=== PATIENT | male | born 1950 | race Caucasian/White ===

== ENCOUNTER → 2022-07-11 15:59 | Outpatient (BNVA) | payer MEDICARE, SELFPAY | PROVIDERS: PCP Internal Medicine; Visit Provider Psychiatry & Neurology Psychiatry | DX: F33.42 Major depressive disorder, recurrent, in full remission (principal); F41.0 Panic disorder [episodic paroxysmal anxiety]; I10 Essential (primary) hypertension; I48.91 Unspecified atrial fibrillation; M25.561 Pain in right knee; M25.562 Pain in left knee; G89.28 Other chronic postprocedural pain; Z96.653 Presence of artificial knee joint, bilateral | CPT/HCPCS: 90833; 99212 ==

== ENCOUNTER → 2022-08-21 16:10 | Outpatient (BNVA) | payer MEDICARE, SELFPAY | PROVIDERS: PCP Internal Medicine; Visit Provider Psychiatry & Neurology Psychiatry | DX: F33.42 Major depressive disorder, recurrent, in full remission (principal); F41.0 Panic disorder [episodic paroxysmal anxiety]; I10 Essential (primary) hypertension; G89.28 Other chronic postprocedural pain; M25.562 Pain in left knee; M25.561 Pain in right knee; Z96.653 Presence of artificial knee joint, bilateral | CPT/HCPCS: 90833; 99212 ==

== ENCOUNTER 2023-01-14 15:07 | Outpatient (AMB) | payer MEDICARE, SELFPAY ==
--- NOTE | 2023-01-14 15:13 | A.OFFPSYCH_ITS ---
Intake Intake Visit Reasons: Depression Allergies No Known Allergies Allergy (Verified 07/11/22 16:17) Medication List - Last Reconciled 01/14/23 by Jet Adame MD allopurinol 300 mg PO DAILY apixaban (Eliquis) 5 mg PO BID atorvastatin 40 mg PO DAILY bupropion HCl 100 mg PO BID clonazepam (Klonopin) 0.5 mg PO BID PRN metoprolol succinate ER 25 mg PO DAILY mirtazapine 7.5 mg PO BEDTIME venlafaxine ER 37.5 mg PO BEDTIME 30 days HPI- Psychiatric Chief Complaint: Depression HPI Narrative: pt patient continues to do well some periods of anxiety particularly in the morning continues to have difficulty with erectile dysfunction has been on effexor wellbutrin trazadone at hs Past Psychiatric History: The patient has a past history of significant recurrent depression that impacted his life for a number of years with associated panic attacks and difficulty functioning he was treated with Effexor Wellbutrin Rexulti clonazepam for panic attacks he also had a great deal of difficulty a year ago or so when he has suffered from COVID and he to be hospitalized and ended up in a rehab setting for a period of time Assessment and Plan Assessment & Plan (1) Major depression, recurrent, full remission: Status: Acute Code(s): F33.42 - Major depressive disorder, recurrent, in full remission (2) Panic disorder: Status: Acute Code(s): F41.0 - Panic disorder [episodic paroxysmal anxiety] (3) Hypertension: Status: Acute Code(s): I10 - Essential (primary) hypertension Plan Mood generally good her the reviewed with some periods of anxiety he is a committed relationship mirtazapine have sexual side then effexor 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 Medications: New mirtazapine 7.5 mg PO BEDTIME 30 tabs 2RF Discontinued trazodone Discontinued Reason: Doctor's Order 50 mg PO BEDTIME PRN 30 tabs 3RF insomnia Counseling and coordination of Care Details-Self Mgmt counseling: a Issues related regarding getting older some degree of sexual dysfx and relationship to hypertension medication antidepressant medication and aging Medication management counseling: Effectiveness and Side effects Diagnosis and Prognosis Counseling: Adequacy of current interventions Details: I spent [35] minutes reviewing the record, seeing the patient and documenting in the medical record. Counseling provided to the patient/caregiver as outlined below. Addressed patient/caregiver concerns regarding current medication regime including effective adherence. Addressed patient/caregiver concerns regarding diagnosis and prognosis including accuracy of diagnosis, prognosis over time, impact of diagnosis. Addressed patient/caregiver concerns regarding impact of recent stressors. 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 Had disruptive divorce many years ago that was quite difficult for him. 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
== END 2023-01-14 16:23 | disposition home or self-care (01) ==
LOC: HO.HOP 15:07
PROVIDERS: PCP Internal Medicine; Visit Provider Psychiatry & Neurology Psychiatry
DX: F33.42 Major depressive disorder, recurrent, in full remission (principal); F41.0 Panic disorder [episodic paroxysmal anxiety]; I10 Essential (primary) hypertension
CPT/HCPCS: 99214

== ENCOUNTER → 2023-01-14 15:07 | Outpatient (BNVA) | payer MEDICARE, SELFPAY | PROVIDERS: PCP Internal Medicine; Visit Provider Psychiatry & Neurology Psychiatry | DX: F33.42 Major depressive disorder, recurrent, in full remission (principal); F41.0 Panic disorder [episodic paroxysmal anxiety]; N52.2 Drug-induced erectile dysfunction; I10 Essential (primary) hypertension | CPT/HCPCS: 99212 ==

== ENCOUNTER 2023-04-30 16:12 | Outpatient (AMB) | payer MEDICARE, SELFPAY ==
--- NOTE | 2024-03-27 10:50 | MHC.OFFVISPS ---
Intake Intake Visit Reasons: depression Allergies No Known Allergies Allergy (Verified 07/11/22 16:17) HPI- Psychiatric Chief Complaint: depression HPI Narrative: Patient seen psychiatric follow-up. PHQ-9 in [facility] show significant stability and improvement. Patient has been feeling better regarding his work no new significant medical concerns. Patient able to enjoy things no significant panic attacks combination of mirtazapine and Wellbutrin clonazepam for breakthrough panic Past Psychiatric History: The patient has a past history of significant recurrent depression that impacted his life for a number of years with associated panic attacks and difficulty functioning he was treated with Effexor Wellbutrin Rexulti clonazepam for panic attacks he also had a great deal of difficulty a year ago or so when he has suffered from COVID and he to be hospitalized and ended up in a rehab setting for a period of time Mental Status Exam Mental Status Exam Narrative: Mental Status Exam Narrative: Appearance: Casually dressed Behavior: Cooperative appropriate psychomotor: Within normal limits Speech: Normal volume and prosody Thought proccess logical and goal-directed Thought content: Mood: Described as good Affect: Appropriate to mood full affect SI: No HI:denies VH/AH:none Delusions: None Insight/judgment: Memory/cog: Intact Assessment and Plan Assessment & Plan (1) Major depression, recurrent, full remission: Status: Acute Code(s): F33.42 - Major depressive disorder, recurrent, in full remission (2) Chronic knee pain after total replacement of both knee joints: Status: Acute Code(s): M25.561 - Pain in right knee; M25.562 - Pain in left knee; G89.28 - Other chronic postprocedural pain; Z96.653 - Presence of artificial knee joint, bilateral (3) Hypertension: Status: Acute Code(s): I10 - Essential (primary) hypertension (4) Panic disorder: Status: Acute Code(s): F41.0 - Panic disorder [episodic paroxysmal anxiety] Plan Patient has been tapering off Effexor to see if this would have less effect on sexual functioning mirtazapine and Wellbutrin continuing combination for treatment of depression and panic disorder. Patient has been feeling better in a relationship feeling more optimistic and connected. No current depressive symptoms Counseling and coordination of Care Details-Self Mgmt counseling: Relational issues managing anxiety symptoms sexual functioning Medication management counseling: Effectiveness and Side effects Diagnosis and Prognosis Counseling: Adequacy of current interventions Details: I spent [25] minutes reviewing the record, seeing the patient and documenting in the medical record. Counseling provided to the patient/caregiver as outlined below. Addressed patient/caregiver concerns regarding current medication regime including effective adherence. Addressed patient/caregiver concerns regarding diagnosis and prognosis including accuracy of diagnosis, prognosis over time, impact of diagnosis. Addressed patient/caregiver concerns regarding impact of recent stressors. 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 Had disruptive divorce many years ago that was quite difficult for him. 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
== END 2023-04-30 16:39 | disposition home or self-care (01) ==
LOC: HO.HOP 16:12
PROVIDERS: PCP Internal Medicine; Visit Provider Psychiatry & Neurology Psychiatry
DX: F33.42 Major depressive disorder, recurrent, in full remission (principal); M25.561 Pain in right knee; M25.562 Pain in left knee; G89.28 Other chronic postprocedural pain; Z96.653 Presence of artificial knee joint, bilateral; I10 Essential (primary) hypertension; F41.0 Panic disorder [episodic paroxysmal anxiety]
CPT/HCPCS: 99499

== ENCOUNTER → 2023-04-30 16:12 | Outpatient (BNVA) | payer MEDICARE, SELFPAY | PROVIDERS: PCP Internal Medicine; Visit Provider Psychiatry & Neurology Psychiatry ==

== ENCOUNTER 2023-09-09 14:33 | Outpatient (AMB) | payer MEDICARE, SELFPAY ==
--- NOTE | 2023-09-09 14:28 | A.OFFPSYCH_ITS ---
Intake Intake Visit Reasons: Depression Allergies No Known Allergies Allergy (Verified 07/11/22 16:17) HPI- Psychiatric Chief Complaint: Depression HPI Narrative: Patient seen psychiatric follow-up patient is mood generally stable. Considering senior living. Things continue to go quite well with his girlfriend they are considering moving in together. Patient does need some upcoming orthopedic surgery Has tapered down off on Effexor remains on low-dose Klonopin mirtazapine at bedtime. Rare partial panic Past Psychiatric History: The patient has a past history of significant recurrent depression that impacted his life for a number of years with associated panic attacks and difficulty functioning he was treated with Effexor Wellbutrin Rexulti clonazepam for panic attacks he also had a great deal of difficulty a year ago or so when he has suffered from COVID and he to be hospitalized and ended up in a rehab setting for a period of time Mental Status Exam Mental Status Exam Narrative: Mental Status Exam Narrative: Appearance: Casually dressed Behavior: Cooperative appropriate psychomotor: Within normal limits Speech: Normal volume and prosody Thought proccess logical and goal-directed Thought content: Future oriented feeling good about general life situation some anxiety about whether to move in with gf Mood: Euthymic Affect: Appropriate to mood full affect SI:denies HI:denies VH/AH:none Delusions: None Insight/judgment: Good insight and judgment Memory/cog: Intact Assessment and Plan Assessment & Plan (1) Panic disorder: Status: Acute Code(s): F41.0 - Panic disorder [episodic paroxysmal anxiety] (2) Major depression, recurrent, full remission: Status: Acute Code(s): F33.42 - Major depressive disorder, recurrent, in full remission (3) Chronic knee pain after total replacement of both knee joints: Status: Acute Code(s): M25.561 - Pain in right knee; M25.562 - Pain in left knee; G89.28 - Other chroni c postprocedural pain; Z96.653 - Presence of artificial knee joint, bilateral (4) Hypertension: Status: Acute Code(s): I10 - Essential (primary) hypertension Plan pt generally doing well off effexor still has erectile dyfx cont on wellbutrin mirtazapine change klonapin to lorazepam shorter acting safer over time reviewed potential risks benefits Medications: New lorazepam 0.5 mg PO BID PRN 45 tabs 2RF anxiety Refilled bupropion HCl 100 mg PO BID 180 tabs 0RF Discontinued venlafaxine ER Discontinued Reason: Patient no longer taking 37.5 mg PO BEDTIME 30 days 30 caps 3RF clonazepam Discontinued Reason: Doctor's Order 0.5 mg (1/2 x 1 mg) PO BID 30 days PRN 20 tabs 1RF anxiety Counseling and coordination of Care Details-Self Mgmt counseling: reviewed 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 Counseling provided to the patient/caregiver as outlined below. Addressed patient/caregiver concerns regarding current medication regime including effective adherence. Addressed patient/caregiver concerns regarding diagnosis and prognosis including accuracy of diagnosis, prognosis over time, impact of diagnosis. Addressed patient/caregiver concerns regarding impact of recent stressors. 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 Had disruptive divorce many years ago that was quite difficult for him. 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
== END 2023-09-09 14:47 | disposition home or self-care (01) ==
LOC: HO.HOP 14:34
PROVIDERS: PCP Internal Medicine; Visit Provider Psychiatry & Neurology Psychiatry
DX: F41.0 Panic disorder [episodic paroxysmal anxiety] (principal); F33.42 Major depressive disorder, recurrent, in full remission; M25.561 Pain in right knee; M25.562 Pain in left knee; G89.28 Other chronic postprocedural pain; Z96.653 Presence of artificial knee joint, bilateral; I10 Essential (primary) hypertension
CPT/HCPCS: 90833; 99213

== ENCOUNTER → 2023-09-09 14:33 | Outpatient (BNVA) | payer MEDICARE, SELFPAY | PROVIDERS: PCP Internal Medicine; Visit Provider Psychiatry & Neurology Psychiatry | DX: F41.0 Panic disorder [episodic paroxysmal anxiety] (principal); F33.42 Major depressive disorder, recurrent, in full remission; I10 Essential (primary) hypertension; M25.561 Pain in right knee; M25.562 Pain in left knee; G89.29 Other chronic pain; Z96.653 Presence of artificial knee joint, bilateral | CPT/HCPCS: 99212 ==

== ENCOUNTER 2024-02-19 13:53 | Outpatient (AMB) | payer MEDICARE, SELFPAY ==
--- NOTE | 2024-02-19 14:40 | A.OFFPSYCH_ITS ---
Intake Intake Visit Reasons: depression Allergies No Known Allergies Allergy (Verified 07/11/22 16:17) HPI- Psychiatric Chief Complaint: depression HPI Narrative: The patient has been increasingly depressed intermittently hopeless helpless despondent. Has been off Effexor which was tapered off secondary to erectile dysfunction patient has had a lot more anxiety and dysphoria is Effexor discontinued. Feels overwhelmed that he is under a dark cloud have things keep happening to him. 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 has been thinking of fdc he does feel supported by his girlfriend has been on Seroquel in the past continues on Wellbutrin Past Psychiatric History: The patient has a past history of significant recurrent depression that impacted his life for a number of years with associated panic attacks and difficulty functioning he was treated with Effexor Wellbutrin Rexulti clonazepam for panic attacks he also had a great deal of difficulty a year ago or so when he has suffered from COVID and he to be hospitalized and ended up in a rehab setting for a period of time Mental Status Exam Mental Status Exam Narrative: Mental Status Exam Narrative: Appearance: Casually dressed Behavior: Cooperative appropriate psychomotor: Within normal limits Speech: Normal volume and prosody Thought proccess logical and goal-directed at times perseverative ruminating Thought content: Feeling quite negative overwhelmed catastrophic thinking Mood: depressed Affect: Constricted SI: No active plan at times has thoughts he might be better off HI:denies VH/AH:none Delusions: None Insight/judgment: Some lack of insight into how depression may be affecting his functioning Memory/cog: Intact Assessment and Plan Assessment & Plan (1) Major psychotic depression, recurrent: Status: Acute Code(s): F33.3 - Major depressive disorder, recurrent, severe with psychotic symptoms Plan Increase mirtazapine to 15 mg education regarding impact of depressive symptoms on his functioning cognition follow-up 4 weeks patient given number to call if feeling unsafe considers Seroquel Abilifjean claude Rexulti for augmentation if needed could restart Effexor which had been helpful previously had started on mirtazapine with less impact on erectile functioning patient's cognition clear but negativistic Medications: Changed From mirtazapine 7.5 mg PO BEDTIME 30 tabs 2RF To mirtazapine 15 mg PO BEDTIME 30 tabs 1RF Counseling and coordination of Care Details-Self Mgmt counseling: Impact of depression on cognitive functioning and attitude urged to try and maintain perspective Medication management counseling: Effectiveness, Side effects and Dosing range Diagnosis and Prognosis Counseling: Adequacy of current interventions Details: I spent [40] minutes reviewing the record, seeing the patient and documenting in the medical record. Counseling provided to the patient/caregiver as outlined below. Addressed patient/caregiver concerns regarding current medication regime including effective adherence. Addressed patient/caregiver concerns regarding diagnosis and prognosis including accuracy of diagnosis, prognosis over time, impact of diagnosis. Addressed patient/caregiver concerns regarding impact of recent stressors. 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 Had disruptive divorce many years ago that was quite difficult for him. 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
== END 2024-02-19 15:00 | disposition home or self-care (01) ==
LOC: HO.HOP 13:53
PROVIDERS: PCP Internal Medicine; Visit Provider Psychiatry & Neurology Psychiatry
DX: F33.3 Major depressive disorder, recurrent, severe with psychotic symptoms (principal)
CPT/HCPCS: 90833; 99213

== ENCOUNTER → 2024-02-19 13:53 | Outpatient (BNVA) | payer MEDICARE, SELFPAY | PROVIDERS: PCP Internal Medicine; Visit Provider Psychiatry & Neurology Psychiatry | DX: F33.3 Major depressive disorder, recurrent, severe with psychotic symptoms (principal); Z71.89 Other specified counseling | CPT/HCPCS: 99212 ==

== ENCOUNTER 2024-03-18 14:19 | Outpatient (AMB) | payer MEDICARE, SELFPAY ==
--- NOTE | 2024-03-18 14:38 | A.OFFPSYCH_ITS ---
Intake Intake Visit Reasons: depression Allergies No Known Allergies Allergy (Verified 07/11/22 16:17) HPI- Psychiatric Chief Complaint: depression HPI Narrative: Pt seen in f/u mood has been depressed recent breakup. Again feeling quite negative a sense cognitive distortions that he thinks everything bad happens to him. Frustrated anxious no active SI but thoughts at times he would be better off . He had been planning to move in with his female life partner but she had recently set road block and appeared to have change her mind about living together and this was quite intense and catastrophic for the patient. He is trying to see where this might go and is provoking a lot of stress. Has been on mirtazapine and Wellbutrin Past Psychiatric History: The patient has a past history of significant recurrent depression that impacted his life for a number of years with associated panic attacks and difficulty functioning he was treated with Effexor Wellbutrin Rexulti clonazepam for panic attacks he also had a great deal of difficulty a year ago or so when he has suffered from COVID and he to be hospitalized and ended up in a rehab setting for a period of time Mental Status Exam Mental Status Exam Narrative: Mental Status Exam Narrative: Appearance: Casually dressed Behavior: Cooperative appropriate psychomotor: Within normal limits Speech: Normal volume and prosody Thought proccess logical and goal-directed at times perseverative ruminating Thought content: Feeling quite negative overwhelmed catastrophic thinking Mood: depressed Affect: Constricted SI: No active plan at times has thoughts he might be better off HI:denies VH/AH:none Delusions: None Insight/judgment: Some lack of insight into how depression may be affecting his functioning Memory/cog: Intact Assessment and Plan Assessment & Plan (1) Major depression, recurrent: Status: Acute Code(s): F33.9 - Major depressive disorder, recurrent, unspecified (2) Panic disorder: Status: Acute Code(s): F41.0 - Panic disorder [episodic paroxysmal anxiety] Plan Encourage counseling different perspective challenging negative assumptions patient will be talking to his significant other mirtazapine increased to 22.5 mg. Reviewed safety options if active SI Medications: Changed From mirtazapine 15 mg PO BEDTIME 30 tabs 1RF To mirtazapine 22.5 mg (1.5 x 15 mg) PO BEDTIME 45 tabs 2RF 30 days Counseling and coordination of Care Details-Self Mgmt counseling: Issues related to negative thinking and recent interpersonal difficulties with partner Diagnosis and Prognosis Counseling: Impact of diagnosis on life functions and Adequacy of current interventions Details: I spent [40] minutes reviewing the record, seeing the patient and documenting in the medical record. Counseling provided to the patient/caregiver as outlined below. Addressed patient/caregiver concerns regarding current medication regime including effective adherence. Addressed patient/caregiver concerns regarding diagnosis and prognosis including accuracy of diagnosis, prognosis over time, impact of diagnosis. Addressed patient/caregiver concerns regarding impact of recent stressors. 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 Had disruptive divorce many years ago that was quite difficult for him. 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
== END 2024-03-18 16:34 | disposition home or self-care (01) ==
LOC: HO.HOP 14:19
PROVIDERS: PCP Internal Medicine; Visit Provider Psychiatry & Neurology Psychiatry
DX: F33.9 Major depressive disorder, recurrent, unspecified (principal); F41.0 Panic disorder [episodic paroxysmal anxiety]
CPT/HCPCS: 90833; 99213

== ENCOUNTER → 2024-03-18 14:19 | Outpatient (BNVA) | payer MEDICARE, SELFPAY | PROVIDERS: PCP Internal Medicine; Visit Provider Psychiatry & Neurology Psychiatry | DX: F33.9 Major depressive disorder, recurrent, unspecified (principal); F41.0 Panic disorder [episodic paroxysmal anxiety]; Z71.89 Other specified counseling | CPT/HCPCS: 99212 ==

== ENCOUNTER 2024-06-16 14:49 | Outpatient (AMB) | payer MEDICARE, SELFPAY ==
--- NOTE | 2024-06-16 15:14 | MHC.OFFVISPS ---
Intake Intake Visit Reasons: depression Allergies No Known Allergies Allergy (Verified 07/11/22 16:17) Medication List - Last Reconciled 06/16/24 by Jet Adame MD allopurinol 300 mg PO DAILY apixaban (Eliquis) 5 mg PO BID atorvastatin 40 mg PO DAILY bupropion HCl SR 100 mg PO BID lorazepam 0.5 mg PO BID PRN metoprolol succinate ER 25 mg PO DAILY mirtazapine 15 mg PO BEDTIME 30 days HPI- Psychiatric Chief Complaint: depression HPI Narrative: Pt seen in f/u mood has been ok has been in ongoing rel his partner has cervical ca stage 4 . 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 Feels connected to his gf was going to move in Spends time with family. No new medical concerns. Anxiety manageable . Past Psychiatric History: The patient has a past history of significant recurrent depression that impacted his life for a number of years with associated panic attacks and difficulty functioning he was treated with Effexor Wellbutrin Rexulti clonazepam for panic attacks he also had a great deal of difficulty a year ago or so when he has suffered from COVID and he to be hospitalized and ended up in a rehab setting for a period of time Mental Status Exam Mental Status Exam Narrative: Mental Status Exam Narrative: Appearance: Casually dressed Behavior: Cooperative appropriate psychomotor: Within normal limits Speech: Normal volume and prosody Thought proccess logical and goal-directed Thought content: Future oriented focused on his partner and ca Mood: Euthymic Affect: Appropriate to mood full affect SI:denies HI:denies VH/AH:none Delusions: None Insight/judgment: Good insight and judgment Memory/cog: Intact Assessment and Plan Assessment & Plan (1) Major depression, recurrent, full remission: Status: Acute Code(s): F33.42 - Major depressive disorder, recurrent, in full remission (2) Panic disorder: Status: Acute Code(s): F41.0 - Panic disorder [episodic paroxysmal anxiety] Plan doing well generally feeling connected with his gf partner Medications: Changed From mirtazapine 15 mg PO BEDTIME 30 days 30 tabs 3RF To mirtazapine 15 mg PO BEDTIME 90 tabs 1RF 90 days Refilled bupropion HCl SR 100 mg PO BID 180 tabs 1RF Counseling and coordination of Care Pt. Self Management counseling: Cognitive restructuring Medication management counseling: Effectiveness, Side effects and Dosing range Diagnosis and Prognosis Counseling: Adequacy of current interventions Details: I spent [30] minutes reviewing the record, seeing the patient and documenting in the medical record. Counseling provided to the patient/caregiver as outlined below. Addressed patient/caregiver concerns regarding current medication regime including effective adherence. Addressed patient/caregiver concerns regarding diagnosis and prognosis including accuracy of diagnosis, prognosis over time, impact of diagnosis. Addressed patient/caregiver concerns regarding impact of recent stressors. 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 Had disruptive divorce many years ago that was quite difficult for him. 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
== END 2024-06-16 18:17 | disposition home or self-care (01) ==
LOC: HO.HOP 14:49
PROVIDERS: PCP Internal Medicine; Visit Provider Psychiatry & Neurology Psychiatry
DX: F33.42 Major depressive disorder, recurrent, in full remission (principal); F41.0 Panic disorder [episodic paroxysmal anxiety]
CPT/HCPCS: 99214

== ENCOUNTER → 2024-06-16 14:49 | Outpatient (BNVA) | payer MEDICARE, SELFPAY | PROVIDERS: PCP Internal Medicine; Visit Provider Psychiatry & Neurology Psychiatry | DX: F33.42 Major depressive disorder, recurrent, in full remission (principal); F41.0 Panic disorder [episodic paroxysmal anxiety]; Z71.89 Other specified counseling | CPT/HCPCS: 99212 ==

== ENCOUNTER 2024-10-12 14:39 | Outpatient (AMB) | payer MEDICARE, SELFPAY ==
--- NOTE | 2024-10-12 15:00 | MHC.OFFVISPS ---
Intake Intake Visit Reasons: depression Allergies No Known Allergies Allergy (Verified 07/11/22 16:17) HPI- Psychiatric Chief Complaint: depression HPI Narrative: Patient seen psychiatric follow-up. Patient's girlfriend has been going through radiation chemotherapy has not currently wanted the patient move in. He is not sure of his current status in the relationship. Patient intermittently has some increased anxiety but mostly managing. 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 Past Psychiatric History: The patient has a past history of significant recurrent depression that impacted his life for a number of years with associated panic attacks and difficulty functioning he was treated with Effexor Wellbutrin Rexulti clonazepam for panic attacks he also had a great deal of difficulty a year ago or so when he has suffered from COVID and he to be hospitalized and ended up in a rehab setting for a period of time Mental Status Exam Mental Status Exam Narrative: Mental Status Exam Narrative: Appearance: Casually dressed Behavior: Cooperative appropriate psychomotor: Within normal limits Speech: Normal volume and prosody Thought proccess logical and goal-directed Thought content: Future oriented focused on his partner and ca Mood: Okay ?some anxiety regarding future Affect: Appropriate to mood full affect SI:denies HI:denies VH/AH:none Delusions: None Insight/judgment: Good insight and judgment Memory/cog: Intact Assessment and Plan Assessment & Plan (1) Panic disorder: Status: Acute Code(s): F41.0 - Panic disorder [episodic paroxysmal anxiety] (2) Major depression, recurrent: Status: Acute Code(s): F33.9 - Major depressive disorder, recurrent, unspecified Plan Given increased anxiety will try and increase mirtazapine 22.5 mg see if that helps mood and anxiety patient denies self-harm 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 No acute change in medical status Medications: Changed From mirtazapine 15 mg PO BEDTIME 90 days 90 tabs 1RF To mirtazapine 22.5 mg (1.5 x 15 mg) PO BEDTIME 135 tabs 1RF 90 days Refilled bupropion HCl SR 100 mg PO BID 180 tabs 1RF lorazepam 0.5 mg PO BID PRN 45 tabs 2RF anxiety Counseling and coordination of Care Details: I spent [] minutes reviewing the record, seeing the patient and documenting in the medical record. Counseling provided to the patient/caregiver as outlined below. Addressed patient/caregiver concerns regarding current medication regime including effective adherence. Addressed patient/caregiver concerns regarding diagnosis and prognosis including accuracy of diagnosis, prognosis over time, impact of diagnosis. Addressed patient/caregiver concerns regarding impact of recent stressors. 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 Had disruptive divorce many years ago that was quite difficult for him. 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
--- OUTSIDE RECORDS SUMMARY | 2024-10-12 17:32 | XMS_ITS | Clinical Summary ---
Author Organization [facility] Address [address] [place] [address] Care Team Providers Care Teacher Of Family And Consumer Science Name Role Phone Geovanny Lew MD Primary Care Provider Allergies No known active allergies Medications Medication Sig Dispensed Refills Start Date End Date Status flecainide (TAMBOCOR) 100 MG tablet Take 100 mg by mouth. 0 Active ELIQUIS 5 MG TABS tablet 0 07/03/2019 Active clonazePAM (KlonoPIN) 1 MG tablet TK 1 T PO BID IF NEEDED 0 05/21/2019 Active buPROPion (WELLBUTRIN SR) 100 MG 12 hr tablet TK 1 T PO BID 0 05/18/2019 Active traZODone (DESYREL) 50 MG tablet 0 07/16/2019 Active venlafaxine (EFFEXOR-XR) 75 MG 24 hr capsule TK 1 C PO Q HS 0 06/14/2019 Active atorvastatin (LIPITOR) tablet 40 mg 0 07/13/2019 Active gemfibrozil (LOPID) 600 MG tablet Take 600 mg by mouth. 0 Active simvastatin (ZOCOR) tablet 10 mg Take 10 mg by mouth. 0 Active atenolol (TENORMIN) tablet 100 mg Take 100 mg by mouth. 0 Active atenolol (TENORMIN) tablet 25 mg Take 25 mg by mouth daily. 3 04/20/2019 Active vardenafil (LEVITRA) 20 MG tablet Take 20 mg by mouth daily as needed. 0 07/09/2019 Active allopurinol (ZYLOPRIM) 300 MG tablet 300 mg daily. 0 07/03/2019 Active azithromycin (ZITHROMAX) 250 MG tablet 0 07/16/2019 Active doxycycline (VIBRAMYCIN) 100 MG capsule Take 100 mg by mouth. 0 06/05/2017 Active Multiple Vitamins-Minerals (MULTIVITAMIN ADULT PO) Take by mouth daily. 0 Active vitamin E 100 UNIT capsule Take 100 Units by mouth daily. 0 Active vitamin C (ASCORBIC ACID) 500 MG tablet Take 500 mg by mouth daily. 0 Active Magnesium 500 MG CAPS Take by mouth daily. 0 Active Pyridoxine HCl (VITAMIN B-6) 100 MG tablet Take 100 mg by mouth daily. 0 Active Coenzyme Q10 (COQ10) 100 MG CAPS Take by mouth daily. 0 Active Social History Tobacco Use Types Packs/Day Years Used Date Smoking Tobacco: Former Smokeless Tobacco: Former Sex and Gender Information Value Date Recorded Sex Assigned at Not on file Gender Identity Not on file Sexual Orientation Not on file Job Start Date Occupation Industry Not on file Not on file Not on file Last Filed Vital Signs Vital Sign Reading Time Taken Comments Blood Pressure 138/78 07/17/2019 2:16 PM EST Pulse - - Temperature - - Respiratory Rate - - Oxygen Saturation - - Inhaled Oxygen Concentration - - Weight 102.1 kg (225 lb) 09/07/2019 4:08 PM EST Height 185.4 cm (6' 1 ) 09/07/2019 4:08 PM EST Body Mass Index 29.69 09/07/2019 4:08 PM EST Plan of Treatment Health Maintenance Due Date Last Done Comments Hepatitis C Screening 1950 COVID-19 Vaccine (#1) 03/31/1949 Depression Screening 1960 Preventative Health Evaluation 1966 DTap / Tdap / Td (1 - Tdap) 09/29/1967 Shingrix-Zoster Vaccine (1 of 2) 1998 Fall Risk Assessment 2013 Pneumococcal Vaccine (2 of 2 - PCV) 2013 05/17/2008 RSV Adult > 60+ Yrs or Pregn ant (1 - 1-dose 75+ series) 09/29/2023 Influenza Vaccine (#1) 2024 Hepatitis B Vaccines Aged Out No long er eligible based on patient's age to complete this topic RSV Ped < 20 months Aged Out No longe r eligible based on patient's age to complete this topic Care Teams Teacher Of Family And Consumer Science Relationship Specialty Start Date End Date Geovanny Lew MD [address] [address] PCP - General Internal Medicine 07/17/19
--- OUTSIDE RECORDS SUMMARY | 2024-10-12 17:32 | XMS_ITS ---
Author Organization [facility] Care Team Providers Care Slp Name Role Phone Cassie Villeda Unavailable Unavailable Lux Mcfarland Unavailable Unavailable Rebecca Troy Unavailable Unavailable Allergies and adverse reactions No Known Allergies Care Team Name Role Address Phone Organization Dates Lux Mcfarland PCP [address] [facility] [address] [place] [address], [id number], [facility] (Office): [facility] 04/13/2021 - 05/12/2021 Cassie Villeda Attending Physician [address] [place] [address], [facility], [facility] (Office): [facility] 04/13/2021 - 05/12/2021 Rebecca Troy Attending Physician [address] [place] [address], [id number], [facility] (Office): [facility] 04/13/2021 - 05/12/2021 Immunizations Immunization Status Vaccine Details Vaccine Code CodeSystem Date Notes Influenza completed Influenza, split virus, trivalent, injectable, contains preservative lotNumber: [id number] expiry: 12/20/2021 Mfg: AFLURIA qUADRIVALENT Given 0.5 ml Right Deltoid intramuscularly 141 CVX created date: 05/11/2021 administer ed date: 05/09/2021 Educated by Shelia Soto on 05/09/2021 Given here SARS-COV-2 (COVID-19) completed SARS-COV-2 (COVID-19) vaccine, mRNA, spike protein, LNP, preservative free, 30 mcg/0.3mL dose lotNumber: [id number] expiry: 08/07/2021 Mfg: [employer] Given 0.3 ml Right Deltoid intramuscularly Step 1 of Multi-step 208 CVX created date: 05/11/2021 administer ed date: 05/09/2021 Educated by Shelia Soto on 05/09/2021 Booster dose pfizer SARS-COV-2 (COVID-19) completed SARS-COV-2 (COVID-19) vaccine, mRNA, spike protein, LNP, preservative free, 30 mcg/0.3mL dose Mfg: [employer] Step 2 of Multi-step with next step required 208 CVX created date: 04/13/2021 administer ed date: 10/07/2020 SARS-COV-2 (COVID-19) completed SARS-COV-2 (COVID-19) vaccine, mRNA, spike protein, LNP, preservative free, 30 mcg/0.3mL dose Mfg: [employer] Step 1 of Multi-step with next step required 208 CVX created date: 04/13/2021 administer ed date: 09/16/2020 Mental Status Section Date Assessment Total Score Description 05/12/2021 CAM 0 No delirium ind icated 04/18/2021 BIMS 15 cognitively int act CAM 0 No delirium ind icated PHQ-9 09 mild depression Problems Problem # Description Date of onset Resolved Date Code CodeSystem Concern Status 1 ACUTE EMBOLISM AND THROMBOSIS OF DEEP VEINS OF LEFT UPPER EXTREMITY 04/13/[address] active 2 ACUTE RESPIRATORY FAILURE WITH HYPOXIA 04/13/[address] active 3 BENIGN PROSTATIC HYPERPLASIA WITHOUT LOWER URINARY TRACT SYMPTOMS 04/13/[address] active 4 CHRONIC ATRIAL FIBRILLATION, UNSPECIFIED 04/13/[address] active 5 CHRONIC GOUT DUE TO RENAL IMPAIRMENT, UNSPECIFIED SITE, WITHOUT TOPHUS (TOPHI) 04/13/[address] active 6 DIFFICULTY IN WALKING, NOT ELSEWHERE CLASSIFIED 04/13/[address] active 7 ESSENTIAL (PRIMARY) HYPERTENSION 04/13/[address] active 8 HYPERLIPIDEMIA, UNSPECIFIED 04/13/[address] active 9 MAJOR DEPRESSIVE DISORDER, RECURRENT, UNSPECIFIED 04/13/[address] active 10 PERSONAL HISTORY OF COVID-19 04/13/[address] active 11 PNEUMONIA DUE TO CORONAVIRUS DISEASE 2019 04/13/[id number] active 12 POST COVID-19 CONDITION, UNSPECIFIED 04/13/20 U09.9 ICD-10-CM active 13 PYOTHORAX WITHOUT FISTULA 04/13/[address] active 14 SHORTNESS OF BREATH 04/13/[address] active 15 WEAKNESS 04/13/[address] active Reason for Referral No Reasons for Referral Entered Social History Social History Observation Description Start Date End Date Code Code System Current Smoking Status Tobacco smoking consumption unknown 805767296 SNOMED CT Sex Assigned At Male 1950 06879-5 [facility] Vital Signs Code Code System Vitals Name Values and Units Timing Information 95541-4 [facility] Pain Level Value=0.0 05/12/2021 8310-5 [facility] Body Temperature Value=97.5 Units=?? F 05/12/2021 60084-7 [facility] Weight Tubcr=287.1 Units=Lbs 09/2020 18370-6 [facility] O2 % BldC Oximetry Value=96.0 Units= % 05/10/2021 9279-1 [facility] Respiratory Rate Value=20.0 Units=/m in 05/10/2021 8867-4 [facility] Heart rate Value=80.0 Units=/min 09/2020 8462-4 [facility] Blood Pressure-Diastolic Value=75 Un its=mmHg 05/10/2021 8480-6 [facility] Blood Pressure-Systolic Esjqg=141 Un its=mmHg 05/10/2021 8302-2 [facility] Height Value=73.0 Units=Inches 04/19/2021
--- OUTSIDE RECORDS SUMMARY | 2024-10-12 17:32 | XMS_ITS | Clinical Summary ---
Author Organization [facility] Address [address] [place] [address] Care Team Providers Care Sandfill Operator Name Role Phone Geovanny Lew MD Primary Care Provider [phone] Allergies No known active allergies Medications MULTIPLE VITAMIN PO Take 1 tablet by mouth 1 (one) time each day Active allopurinol (ZYLOPRIM) 300 MG tablet Take 300 mg by mouth 1 (one) time each day 07/03/2019 Active apixaban (ELIQUIS) 5 MG tablet Take 1 tablet by mouth 2 (two) times a day 07/03/2019 Active atorvastatin (LIPITOR) 40 MG tablet Take 1 tablet by mouth 1 (one) time each day 07/13/2019 Active traZODone (DESYREL) 50 MG tablet Take 1 tablet by mouth 1 (one) time each day 07/16/2019 Active buPROPion SR (WELLBUTRIN SR) 100 MG 12 hr tablet Take 1 tablet by mouth 1 (one) time each day 05/18/2019 Active clonazePAM (KlonoPIN) 1 MG tablet Take 1 mg by mouth 2 (two) times a day if needed for anxiety Active metoprolol succinate XL (TOPROL XL) 25 MG 24 hr tablet Take 25 mg by mouth 1 (one) time each day 08/18/2022 Active tamsulosin (FLOMAX) 0.4 MG 24 hr capsule TAKE 1 CAPSULE BY MOUTH EVERY DAY 90 capsule 1 07/12/2024 Active Active Problems Problem Noted Date Diagnosed Date Hyperlipidemia 09/02/2020 Paroxysmal atrial fibrillation 09/02/2020 Essential (primary) hypertension 09/02/2020 Stage 3a chronic kidney disease 09/02/2020 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 Hypertensive nephrosclerosis 09/02/2020 Benign prostatic hyperplasia with lower urinary tract symptom 09/02/2020 Serum creatinine above reference range Cardiac arrhythmia 09/01/2020 Spinal stenosis 09/01/2020 Gout 09/01/2020 Chronic diarrhea 08/04/2015 Depressive disorder 08/04/2015 Family History Medical History Relation Comments Hypertension Father Stroke Father Cancer Mother Relation Status Comments Father Mother Social History Tobacco Use Types Packs/Day Years Used Date Smoking Tobacco: Former Cigarettes Q uit: 1972 Smokeless Tobacco: Never Alcohol Use Standard Drinks/Week Comments Yes 0 (1 standard drink = 0.6 oz pur e alcohol) Sex and Gender Information Value Date Recorded Sex Assigned at Not on file Legal Sex Male 4:58 PM EST Gender Identity Not on file Sexual Orientation Not on file Last Filed Vital Signs Vital Sign Reading Time Taken Comments Blood Pressure 120/60 10/29/2022 3:43 PM EDT Pulse 73 10/29/2022 3:43 PM EDT Temperature - - Respiratory Rate - - Oxygen Saturation 95% 09/02/2020 2:10 PM EST Inhaled Oxygen Concentration - - Weight 99.8 kg (220 lb) 10/29/2022 3:43 PM EDT Height 185.4 cm (6' 1 ) 09/02/2020 2:10 PM EST Body Mass Index 29.03 09/02/2020 2:10 PM EST Plan of Treatment Health Maintenance Due Date Last Done Comments Pneumococcal Vaccine: 65+ Ye ars (2 of 2 - PCV) 05/17/2009 05/17/2008 Influenza Vaccine (Season Ended) 2025 Hepatitis B Vaccine Aged Out No longe r eligible based on patient's age to complete this topic Insurance AETNA MEDICARE AETNA MEDICARE Care Teams Sandfill Operator Relationship Specialty Start Date End Date Geovanny Lew MD [address] [place] [address] PCP - General 07/18/20
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
--- OUTSIDE RECORDS SUMMARY | 2024-10-12 17:32 | XMS_ITS | Encounter Summary ---
Author Organization [facility] Address [address] [place] [address] Care Team Providers Care Jelly Maker Name Role Phone Geovanny Lew MD Primary Care Provider Encounter Details Date Type Department Care Team ([facility] st Contact Info) Description 06/29/2024 Lab Requisition [facility] - Main Lab [address] [facility] [place] [phone] Geovanny Lew MD 299 [facility] [address] [place] [address] Unspecified osteoarthritis, unspecified site Social History Tobacco Use Types Packs/Day Years Used Date Smoking Tobacco: Former Smokeless Tobacco: Former Alcohol Use Standard Drinks/Week Comments Yes 0 (1 standard drink = 0.6 oz pur e alcohol) Sex and Gender Information Value Date Recorded Sex Assigned at Male 08/26/2024 5:53 PM EST Legal Sex Male 5:19 PM EST Gender Identity Male 08/26/2024 5:53 PM EST Sexual Orientation Straight 08/26/2024 5: 53 PM EST documented as of this encounter Plan of Treatment Not on file documented as of this encounter Procedures Procedure Name Priority Date/Time Associated Diagnosis Comments PROSTATE SPECIFIC ANTIGEN SCREEN Routine 06/29/2024 12:00 AM EST Unspecified osteoarthritis, unspecified site HEMOGLOBIN A1C Routine 06/29/2024 12:00 AM EST Unspecified osteoarthritis, unspecified site documented in this encounter Results * Prostate specific antigen screen (06/29/2024 12:00 AM EST) PSA 0.23 0.00 - 4.00 ng/mL LAB CHEMISTRY METHOD 06/29/2024 7:07 PM EST [facility] Blood Venous blood specimen / Unknown 06/29/2024 06/29/2024 6:03 PM EST Narrative [facility] - 06/29/2024 7:07 PM EST The Siemens Advia Centaur Chemiluminescent Immunoassay is used. Results obtained with different assay methods or kits cannot be used interchangeably. Results cannot be interpreted as absolute evidence of the presence or absence of malignant disease. us Geovanny Lew MD LAB BLOOD ORDERABLES Final Result Performing Organization Address City/[facility]/ZIP Co de Phone Number [facility] [address] [place] [address], [place] [phone] * Hemoglobin A1c (06/29/2024 12:00 AM EST) Hemoglobin A1C 5.2 <6.5 % LAB CHEMISTRY METHOD 06/29/2024 9:24 PM EST [facility] Mean Bld Glu Estim. 103 mg/dL LAB CHEMISTRY METHOD 06/29/2024 9:24 PM EST [facility] Blood Venous blood specimen / Unknown 06/29/2024 06/29/2024 6:03 PM EST us Geovanny Lew MD LAB BLOOD ORDERABLES Final Result [facility] [address] [place] [address], [place] [phone] documented in this encounter Visit Diagnoses Diagnosis Unspecified osteoarthritis, unspecified site documented in this encounter Additional Health Concerns Infection Onset Date Last Indicated Resolved Time Respiratory Rule-Out 08/20/2024 08/20/2024 025 9:07 PM EST COVID-19 Rule-Out 08/20/2024 08/20/2024 08/20/2024 9:07 PM EST RSV 08/20/2024 08/20/2024 09/13/2024 7:06 PM EDT Gastrointestinal Rule-Out 08/26/2024 08/26/2024 8:23 PM EST C. Diff Rule-Out Infection 08/26/2024 08/26/2024 0 08/26/2024 7:44 PM EST Norovirus 08/26/2024 08/26/2024 documented as of this encounter Care Teams Jelly Maker Relationship Specialty Start Date End Date Geovanny Lew MD [address] [place] [address] PCP - General Internal Medicine 06/06/20 documented as of this encounter
--- OUTSIDE RECORDS SUMMARY | 2024-10-12 17:32 | XMS_ITS | Clinical Summary ---
Author Organization [email or web address] Address [address] [place] [address] Phone Care Team Providers Care Welfare Manager Name Role Phone Geovanny Lew MD Primary Care Provider [phone] Allergies No known active allergies Medications ALLOPURINOL ORAL Take 300 mg by mouth daily. Active atorvastatin (LIPITOR) 40 mg tablet Take 40 mg by mouth daily. Active buPROPion (WELLBUTRIN) 100 mg tablet Take 1 tablet (100 mg total) by mouth 2 (two) times a day. Active metoprolol succinate (TOPROL-XL) 25 mg 24 hr tablet Take 1 tablet (25 mg total) by mouth 1 (one) time each day. 03/02/2022 Active apixaban (Eliquis) 5 mg tablet TAKE 1 TABLET BY MOUTH TWICE DAILY 180 tablet 1 08/10/2024 Active LORazepam (ATIVAN) 0.5 mg tablet Take 1 tablet (0.5 mg total) by mouth 2 (two) times a day if needed. Active mirtazapine (REMERON) 15 mg tablet Take 1 tablet (15 mg total) by mouth at bedtime. at bedtime. 06/16/2024 Active tamsulosin (FLOMAX) 0.4 mg 24 hr capsule Take 1 capsule (0.4 mg total) by mouth 1 (one) time each day. 12/24/2023 Active ondansetron (ZOFRAN) 4 mg tabletIndication s:Nausea and vomiting, unspecified vomiting type Take 1 tablet (4 mg total) by mouth every 8 (eight) hours if needed for nausea or vomiting. 20 tablet 3 09/17/2024 10/18/19 25 Active Active Problems Problem Noted Date Diagnosed Date Weakness 08/26/2024 Dehydration 08/20/2024 Aortic aneurysm without rupture 01/24/2021 Overview (06/08/2024): Last Assessment & Plan: Last echocardiogram showing stable ascending aorta measuring 4.2 cm in sinuses of Valsalva measuring 4.6 cm and dilatation. We will update an echocardiogram in 1 year. Atrial fibrillation 01/24/2021 Overview (06/08/2024): Last Assessment & Plan: Patient has history of paroxysmal atrial fibrillation. His [id number] score is 2 representing a 2.2% risk for thromboembolism. He continues on Eliquis 5 mg twice daily for anticoagulation. Benign essential hypertension 01/24/2021 Overview (06/08/2024): Last Assessment & Plan: Blood pressure is under excellent control with a reading today of 138/70. He continues on metoprolol. First degree atrioventricular block 01/24/2021 Overview (06/08/2024): Last Assessment & Plan: Patient's EKG is stable and unchanged showing sinus rhythm with first-degree AV block with a heart rate of 63 bpm. Pure hypercholesterolemia 01/24/2021 Overview (06/08/2024): Last Assessment & Plan: Lipids are monitored by his primary care provider. He states that he recently had labs done with his PCP and we will obtain them for review. He continues on atorvastatin 40 mg once a day. Encounters Date Type Department Care Team Description 10/09/2024 Telephone Gastroenterology - [address] [place] [address] Ernestine Mckeon PA 10/02/2024 9:36 AM EDT - 10/02/2024 11:59 PM EDT Hospital Encounter [facility] MRI [address] [place] [address] Nausea and vomiting, unspecified vomiting type; Abnormal CT scan Discharge Disposition: Home or Self Care 09/29/2024 Telephone Gastroenterology - [address] [facility] [address] [place] [address] Tran Gamble MA 09/23/2024 3:30 PM EDT Ancillary Procedure [facility] [address] [place] [phone] Paroxysmal atrial fibrillation (CMS/HCC); Aortic aneurysm without rupture, unspecified portion of aorta (CMS/HCC); Essential hypertension, benign 09/21/2024 Telephone Gastroenterology - [address] [facility] [address] [address] [place] [address] Tran Gamble MA 09/17/2024 3:10 PM EDT Lab Draw Station - [address] [facility] [address] [facility] [address] [address] Nausea and vomiting, unspecified vomiting type; Abnormal CT scan 09/17/2024 2:40 PM EDT Office Visit Gastroenterology - [address] [facility] [address] [place] [phone] Ernestine Mckeon PA Nausea and vomiting, unspecified vomiting type (Primary Dx); Abnormal CT scan 08/26/2024 5:42 PM EST - 08/27/2024 12:49 PM EST [facility] [address] [place] [address] Lamonte Nettles MD Kela, Kashyap Devendrabhai, MD Dehydration (Primary Dx); Diarrhea of infectious origin Discharge Disposition: Home or Self Care 08/20/2024 7:46 PM EST - 08/21/2024 2:00 PM EST [facility] Emergency [address] [place] [phone] Jasmina Jim DO Ishtiaq, Rizwan, MD Santoyo-Pacheco, Omar D, MD Dehydration (Primary Dx); Orthostatic dizziness; Nausea and vomiting, unspecified vomiting type Discharge Disposition: Home or Self Care from Last 3 Months Surgical History Surgery Date Site/Laterality Comments OTHER SURGICAL HISTORY PROCEDURE: WA TENOLYSIS TRICEPS OTHER SURGICAL HISTORY PROCEDURE: WA ARTHRD ANT TRANSORL/XTRORAL C1-C2 W/WO EXC ODNTD; COMMENT: Cervical fusion COLONOSCOPY 11/30/2022 TAx1 recall 5 yr Medical History Medical History Date Comments Sleep apnea DX:Sleep apnea Avulsion fracture DX:Avulsion fr acture; COMMENT: of triceps Family History Medical History Relation Name Comments Stroke Father Lung cancer Mother Relation Name Status Comments Father Mother Social History Tobacco [...] Orientation Straight 08/26/2024 5: 53 PM EST Obstetrics History Last Filed Vital Signs Vital Sign Reading Time Taken Comments Blood Pressure 119/69 08/27/2024 7:46 AM EST Pulse 58 08/27/2024 7:46 AM EST Temperature 36.6 ??C (97.9 ??F) 08/27/2024 7:46 AM ES T Respiratory Rate 17 08/27/2024 7:46 AM EST Oxygen Saturation 97% 08/27/2024 7:46 AM EST Inhaled Oxygen Concentration - - Weight 94.8 kg (209 lb) 09/23/2024 3:49 PM EDT Height 185.4 cm (6' 1 ) 09/23/2024 3:49 PM EDT Body Mass Index 27.57 09/23/2024 3:49 PM EDT Plan of Treatment Health Maintenance Due Date Last Done Comments Zoster Vaccines (2 of 3) 09/26/2015 08/01/2015, 12/06 Cholesterol Screening (Lipid Panel) 06/16/2022 Depression Screening 06/16/2022 Hepatitis C Screening 06/16/2022 Medicare Annual Wellness Visit 06/16/2022 Social Influencers of Health Screening 06/16/2022 RSV Immunization Adult Patients (1 - 1-dose 75+ series) 09/29/2023 COVID-19 Vaccine ( season) 2024 05/25/2022, 11/10/2021, 05/18/2021, Additional history exists Falls Risk Assessment 08/27/2025 08/27/2024 Hypertension/CHF/CAD Annual BMP Blood Test 09/17/2025 09/17/2024, 08/27/2024, 08/26/2024, Additional history exists DTaP,Tdap,and Td Vaccines (4 - Td or Tdap) 04/17/2034 04/17/2024, 04/20/2022, 11/10/2021 Pneumococcal Vaccine: 50+ Years Completed 03/19/2016, 02/20/2015, 05/17/2008, Additional history exists Influenza Vaccine Completed 04/17/2024, , 05/18/2021, Additional history exists HIB Vaccines Aged Out No longer eligi ble based on patient's age to complete this topic HPV Vaccines Aged Out No longer eligi ble based on patient's age to complete this topic Hepatitis A Vaccines Aged Out No long er eligible based on patient's age to complete this topic Hepatitis B Vaccines Aged Out No long er eligible based on patient's age to complete this topic IPV Vaccines Aged Out No longer eligi ble based on patient's age to complete this topic MMR Vaccines Aged Out No longer eligi ble based on patient's age to complete this topic Meningococcal ACWY Vaccine Aged Out N o longer eligible based on patient's age to complete this topic Meningococcal B Vaccine Aged Out No l onger eligible based on patient's age to complete this topic RSV Immunization Patients Under 20 months Aged Out No longer eligible based on patient's age to complete this topic Varicella Vaccines Aged Out No longer eligible based on patient's age to complete this topic Procedures Procedure Name Priority Date/Time Associated Diagnosis Comments MR ABDOMEN WO AND W CONTRAST MRCP Routine 10/02/2024 10:48 AM EDT Nausea and vomiting, unspecified vomiting type Abnormal CT scan TRANSTHORACIC ECHOCARDIOGRAM (TTE) COMPLETE Routine 09/23/2024 4:24 PM EDT Paroxysmal atrial fibrillation (CMS/HCC) Aortic aneurysm without rupture, unspecified portion of aorta (CMS/HCC) Essential hypertension, benign BILIRUBIN DUPLICATE PROCEDURE TO ORDER Routine 09/17/2024 3:12 PM EDT Nausea and vomiting, unspecified vomiting type Abnormal CT scan AMYLASE Routine 09/17/2024 3:12 PM EDT Nausea and vomiting, unspecified vomiting type Abnormal CT scan LIPASE Routine 09/17/2024 3:12 PM EDT Nausea and vomiting, unspecified vomiting type Abnormal CT scan COMPREHENSIVE METABOLIC PANEL Routine 09/17/2024 3:12 PM EDT Nausea and vomiting, unspecified vomiting type Abnormal CT scan ECG ANNOTATED 08/28/2024 MAGNESIUM Routine 08/27/2024 7:07 AM EST BASIC METABOLIC PANEL Routine 08/27/2024 7:07 AM EST CBC WITH AUTO DIFFERENTIAL Routine 08/27/2024 6:37 AM EST CBC AND DIFFERENTIAL Routine 08/27/2024 6:37 AM EST ECG 12-LEAD STAT 08/26/2024 7:[address] ABDOMEN PELVIS W CONTRAST STAT 08/26/2024 6:51 PM EST XR CHEST 2 VIEWS STAT 08/26/2024 6:43 PM EST CLOSTRIDIUM DIFFICILE TOXIN STAT 08/26/2024 6:35 PM EST GASTROINTESTINAL PATHOGENS BY PCR STAT 08/26/2024 6:35 PM EST HEPATIC FUNCTION PANEL STAT Add-on 3:22 PM EST CBC WITH AUTO DIFFERENTIAL STAT 08/26/2024 3:22 PM EST BASIC METABOLIC PANEL STAT 08/26/2024 3:22 PM EST CBC AND DIFFERENTIAL STAT 08/26/2024 3:22 PM EST ECG ANNOTATED 08/25/2024 ECG ANNOTATED 08/25/2024 CBC WITH AUTO DIFFERENTIAL Routine 08/21/2024 7:04 AM EST MAGNESIUM Routine 08/21/2024 7:04 AM EST BASIC METABOLIC PANEL Routine 08/21/2024 7:04 AM EST CBC AND DIFFERENTIAL Routine 08/21/2024 7:04 AM EST CULTURE BLOOD Routine 08/21/2024 7:04 AM EST CULTURE BLOOD Routine 08/21/2024 7:[address] CHEST W CONTRAST STAT 08/20/2024 1 0:03 PM EST XR CHEST 2 VIEWS STAT 08/20/2024 9:06 PM EST ECG 12-LEAD STAT 08/20/2024 8:41 PM EST VMER-VDH1-OAC, RSV, FLU A AND B QUALITATIVE RT-PCR, INTERNAL LAB STAT 08/20/2024 8:06 PM EST TROPONIN I HIGH SENSITIVITY STAT 08/20/2024 3:05 PM EST PROTHROMBIN TIME WITH INR STAT 08/20/2024 12:17 PM EST TROPONIN I HIGH SENSITIVITY STAT 08/20/2024 12:17 PM EST CBC WITH AUTO DIFFERENTIAL STAT 08/20/2024 12:17 PM EST LIPASE STAT 08/20/2024 12:17 PM EST MAGNESIUM STAT 08/20/2024 12:17 PM EST COMPREHENSIVE METABOLIC PANEL STAT 08/20/2024 12:17 PM EST CBC AND DIFFERENTIAL STAT 08/20/2024 12:17 PM EST ECG 12-LEAD STAT 08/20/2024 12:13 PM EST from Last 3 Months Results * MR Abdomen wo and w Contrast MRCP (10/02/2024 10:48 AM EDT) Anatomical Region Laterality Modality Body Magnetic Resonan ce 10/05/2024 2:49 PM EDT Impressions 10/05/2024 3:26 PM EDT The pancreatic duct is prominent in the head and neck, and appears similar to the previous CT. ??There is no evidence of an obstructing mass or ductal filling defect. -------- FINAL REPORT -------- Dictated By: Hunter Hameed Dictated Date: 10/05/2024 14:49 ET Assigned Physician: Hunter Hameed Reviewed and Electronically Signed By: Hunter Hameed Signed Date: 10/05/2024 15:26 ET Workstation ID: [id number] Transcribed By: Self Edit Transcribed Date: 10/05/2024 14:49 ET Narrative 10/05/2024 3:26 PM EDT PROCEDURE: Contrast enhanced MRI of the abdomen with MRCP. HISTORY: pancreatic duct dilation on previous CT scan. TECHNIQUE: Multiplanar multisequence MRI of the abdomen with and without intravenous contrast administration. ??MRCP was also performed, with multiple reformats. IV contrast dose: 20 mL intravenous Dotarem from a 20 mL vial with 0 mL discarded. COMPARISON: CT dated 08/26/2024. FINDINGS: LOWER THORAX: Normal. LIVER: No focal lesion. ??No evidence of steatosis on out of phase imaging. ??The portal and hepatic veins are patent. BILIARY: Normal gallbladder. ??Normal caliber biliary tree. ??No ductal dilatation or filling defect. PANCREAS: No focal lesion. ??The pancreatic duct is prominent in the head and neck, measuring up to 9 mm in diameter. ??No ductal filling defect or mass is evident. SPLEEN: Normal. ADRENAL GLANDS: Normal. KIDNEYS: Multifocal cortical scarring in both kidneys. ??Small bilateral cortical cysts. ??Visible portions of the collecting systems are normal. RETROPERITONEUM: No mass or lymphadenopathy. VASCULATURE: No aneurysm. BOWEL/MESENTERY: Small duodenal diverticulum. ABDOMINAL WALL: Visible portions are normal. BONES: Mild S-shaped lumbar scoliosis, with prominent multilevel degenerative changes. ??No visible bony lesion. Procedure Note Hunter Hameed MD - 10/05/2024 PROCEDURE: Contrast enhanced MRI of the abdomen with MRCP. HISTORY: pancreatic duct dilation on previous CT scan. TECHNIQUE: Multiplanar multisequence MRI of the abdomen with and withoutintravenous contrast administration. MRCP was also performed, withmultiple reformats. IV contrast dose: 20 mL intravenous Dotarem from a 20 mL vial with 0 mLdiscarded. COMPARISON: CT dated 08/26/2024. FINDINGS: LOWER THORAX: Normal. LIVER: No focal lesion. No evidence of steatosis on out of phase imaging.The portal and hepatic veins are patent. BILIARY: Normal gallbladder. Normal caliber biliary tree. No ductaldilatation or filling defect. PANCREAS: No focal lesion. The pancreatic duct is prominent in the headand neck, measuring up to 9 mm in diameter. No ductal filling defect ormass is evident. SPLEEN: Normal. ADRENAL GLANDS: Normal. KIDNEYS: Multifocal cortical scarring in both kidneys. Small bilateralcortical cysts. Visible portions of the collecting systems are normal. RETROPERITONEUM: No mass or lymphadenopathy. VASCULATURE: No aneurysm. BOWEL/MESENTERY: Small duodenal diverticulum. ABDOMINAL WALL: Visible portions are normal. BONES: Mild S-shaped lumbar scoliosis, with prominent multileveldegenerative changes. No visible bony lesion. IMPRESSION: The pancreatic duct is prominent in the head and neck, and appears similarto the previous CT. There is no evidence of an obstructing mass or ductalfilling defect. -------- FINAL REPORT -------- Dictated By: Hunter Hameed Dictated Date: 10/05/2024 14:49 ET Assigned Physician: Hunter Hameed Reviewed and Electronically Signed By: Hunter Hameed Signed Date: 10/05/2024 15:26 ET Workstation ID: [id number] Transcribed By: Self Edit Transcribed Date: 10/05/2024 14:49 ET Ernestine MEJIA IMG MRI PROCEDURES Final Result * (ABNORMAL) TRANSTHORACIC ECHOCARDIOGRAM (TTE) COMPLETE (09/23/2024 4:24 PM EDT) Left Atrium Minor Westhoff 6.5 cm CV PACS Left Atrium Major Westhoff 5.6 cm CV PACS LA Area Sys (A2C) 22 cm2 CV PACS LA Area Sys (A4C) 17 cm2 CV PACS LA Volume (BP) 53 mL CV PACS RA Area 17.2 cm2 CV PACS RA 2D Volume 44 mL CV PACS Aortic Sinus Valsalva 4.6 cm CV PACS Ascending Aorta 4.3 cm CV PACS IVSD 1.0 0.6 - 1.0 cm CV PACS LVIDD 4.8 4.2 - 5.8 cm CV PACS LVIDS 2.9 2.5 - 4.0 cm CV PACS LVOT Diameter 2.5 cm CV PACS LVPWD 0.9 0.6 - 1.0 cm CV PACS MV E' Tissue Velocity Lateral 7 cm/s CV PACS MV E' Tissue Velocity Septal 6 cm/s CV PACS LVOT Area 4.9 cm2 CV PACS MV Deceleration [place] 2.1 m/s2 CV PACS E Wave Deceleration Time 295(A) 119 - 242 ms CV PACS MV PHT 86 ms CV PACS MV Peak A Phi 0.70 m/s CV PACS MV Peak E Phi 0.60 m/s CV PACS MV Area PHT 2.6 cm2 CV PACS PV Acceleration Time 137 ms CV PACS RV Diastolic Basal Dimension 5.2(A) 2.5 - 4.1 cm CV PACS RV S' 14 cm/s CV PACS TAPSE 18 mm CV PACS TR Peak Velocity 2.10 m/s CV PACS TR Peak Gradient 17 mmHg CV PACS E/E' Ratio Septal 10 CV PACS E/E' Ratio Averaged 9 CV PACS Relative Wall Thickness ratio 0.38 0.24 - 0.42 CV PACS FS 40 % CV PACS LV Mass 2D 159 96 - 200 g CV PACS Ascending Aorta Index 1.96 cm/m2 CV PACS RA 2D Volume Index 20 18 - 32 mL/m2 CV PACS LVIDD Index 2.19 cm/m2 CV PACS LVIDS Index 1.32 cm/m2 CV PACS E/A Ratio 0.9 0.8 - 2.0 CV PACS E/E' Ratio Lateral 9 CV PACS LA Volume Index (BP) 24 mL/m2 CV PACS LV Mass Index 2D 73 50 - 102 g/m2 CV PACS BSA 2.21 m2 CV PACS Right Ventricular Peak Systolic Pressure 21 mmHg CV PACS Est. RA Pressure 3 mmHg CV PACS RV Free Wall Peak S' 14 cm/s CV PACS RA Major Westhoff 5.1 cm CV PACS RA Major Westhoff Index 2.3 2.1 - 2.7 cm/m2 CV PACS Anatomical Region Laterality Modality Ultrasound Narrative 09/29/2024 1:40 PM EDT ?Left ventricle cavity size is normal. Left ventricular systolic function is in the normal range with an ejection fraction of 55-60%. ?No regional LV wall motion abnormalities noted. ?Left ventricle wall thickness is normal. ?Right ventricle cavity is mildly enlarged. Right ventricular systolic function is normal. ?No hemodynamically significant valve disease. ?The Sinus of Valsalva is dilated (4.6 cm). The ascending aorta is dilated (4.3 cm). Left Ventricle Left ventricle cavity size is normal. Wall thickness is normal. Systolic function is normal with an ejection fraction of 55-60%. There are no regional LV wall motion abnormalities. Indeterminate diastolic function. Right Ventricle Right ventricle cavity is mildly dilated. Systolic function is normal. Left Atrium Left atrium cavity size is normal. Right Atrium Right atrium cavity is normal. IVC/SVC Inferior vena cava structure is normal. RA pressures is estimated to be 3 mmHg (IVC diameter <21 mm and decreases >50% during inspiration). Mitral Valve The leaflets are mildly thickened. There is mild regurgitation. There is no evidence of mitral valve stenosis. Tricuspid Valve The leaflets exhibit normal excursion. There is trace regurgitation. The RVSP is estimated at 21 mmHg. Aortic Valve The aortic valve is trileaflet. There is trace regurgitation. There is no evidence of aortic valve stenosis. Pulmonic Valve Visualized portions of the pulmonic valve appear normal. There is no pulmonic valve regurgitation. Ascending Aorta The Sinus of Valsalva is (4.6 cm). The ascending aorta is (4.3 cm). Pericardium There is no pericardial effusion. Study Details Overall the study quality was technically difficult. Meghan Arias SUPERVISOR VENEER CV ECHO PROCEDURES Final Res ult * Bilirubin duplicate procedure to order (09/17/2024 3:12 PM EDT) Total Bilirubin 0.6 0.0 - 1.4 mg/dL LAB CHEMISTRY METHOD 09/17/2024 5:16 PM EDT [facility] Bilirubin, Direct 0.1 0.0 - 0.3 mg/dL LAB CHEMISTRY METHOD 09/17/2024 5:16 PM EDT [facility] Bilirubin, Indirect 0.5 0.0 - 1.1 mg/dL LAB CHEMISTRY METHOD 09/17/2024 5:16 PM EDT [facility] Blood Venous blood specimen / Unknown Venipuncture / Unknown 09/17/2024 3:12 PM EDT 09/17/2024 4:31 PM EDT Ernestine MEJIA LAB BLOOD ORDERABLES Final Resu lt Performing Organization Address City/[facility]/ZIP Co de Phone Number [facility] [address] [place] [address], [place] [phone] * (ABNORMAL) Lipase (09/17/2024 3:12 PM EDT) Only the most recent of2 resultswithin the time period is included. Lipase 93(H) 13 - 75 unit/L LAB CHEMISTRY METHOD 09/17/2024 5:18 PM EDT [facility] Blood Venous blood specimen / Unknown Venipuncture / Unknown 09/17/2024 3:12 PM EDT 09/17/2024 4:31 PM EDT Ernestine MEJIA LAB BLOOD ORDERABLES Final Resu lt [facility] [address] [place] [address], [place] [phone] * Amylase (09/17/2024 3:12 PM EDT) [facility] Amylase 100 25 - 115 unit/L LAB CHEMISTRY METHOD 09/17/2024 5:16 PM EDT [facility] Blood Venous blood specimen / Unknown Venipuncture / Unknown 09/17/2024 3:12 PM EDT 09/17/2024 4:31 PM EDT Ernestine MEJIA LAB BLOOD ORDERABLES Final Resu lt Performing Organization Address [facility]/ZIP Co de Phone Number [facility] [address] [place] [address], [place] [phone] * Comprehensive metabolic panel (09/17/2024 3:12 PM EDT) Only the most recent of2 resultswithin the time period is included. Pathologist [facility] Sodium 141 133 - 145 mmol/L LAB CHEMISTRY METHOD 09/17/2024 5:16 PM T [facility] Potassium 3.9 3.5 - 5.5 mmol/L LAB CHEMISTRY METHOD 09/17/2024 5:16 PM [facility] Chloride 108 96 - 110 mmol/L LAB CHEMISTRY METHOD 09/17/2024 5:16 PM [facility] CO2 26 21 - 32 mmol/L LAB CHEMISTRY METHOD 09/17/2024 5:16 PM [facility] Anion Gap 7 3 - 11 LAB CHEMISTRY METHOD 09/17/2024 5:16 PM [facility] Glucose 75 70 - 100 mg/dL LAB CHEMISTRY METHOD 09/17/2024 5:16 PM [facility] BUN 22 5 - 25 mg/dL LAB CHEMISTRY METHOD 09/17/2024 5:16 PM [facility] Creatinine 1.09 0.70 - 1.30 mg/dL LAB CHEMISTRY METHOD 09/17/2024 5:16 PM EDT [facility] eGFR 71 >=60 mL/min/1. 73m2 LAB CHEMISTRY METHOD 09/17/2024 5:16 PM T [facility] Comment:Calculation based on the??Chronic Kidney Disease Epidemiology Collaboration (CKD-EPI) equation refit??without adjustment for race. BUN/Creatinine Ratio 20.2 LAB CHEMISTRY METHOD 09/17/2024 5:16 PM EDT [facility] Calcium 8.6 8.5 - 10.5 mg/dL LAB CHEMISTRY METHOD 09/17/2024 5:16 PM [facility] AST (SGOT) 29 10 - 42 unit/L LAB CHEMISTRY METHOD 09/17/2024 5:16 PM [facility] ALT (SGPT) 41 10 - 60 unit/L LAB CHEMISTRY METHOD 09/17/2024 5:16 PM T [facility] Alkaline Phosphatase 99 42 - 121 unit/L LAB CHEMISTRY METHOD 09/17/2024 5:16 PM T [facility] Total Protein 6.5 6.0 - 8.0 g/dL LAB CHEMISTRY METHOD 09/17/2024 5:16 PM [facility] Albumin 3.8 3.2 - 5.0 g/dL LAB CHEMISTRY METHOD 09/17/2024 5:16 PM [facility] Total Bilirubin 0.6 0.0 - 1.4 mg/dL LAB CHEMISTRY METHOD 09/17/2024 5:16 PM [facility] Blood Venous blood specimen / Unknown Venipuncture / Unknown 09/17/2024 3:12 PM EDT 09/17/2024 4:31 PM EDT us Ernestine MEJIA LAB BLOOD ORDERABLES Final Resu lt [facility] [address] [place] [address], [place] [phone] * ECG-Annotated (08/28/2024) Only the most recent of3 resultswithin the time period is included. us Provider Onbase ECG ORDERABLES Final Result * Magnesium (08/27/2024 7:07 AM EST) Only the most recent of3 resultswithin the time period is included. Pathologist [facility] Magnesium 2.3 1.9 - 2.6 mg/dL LAB CHEMISTRY METHOD 08/27/2024 7:49 AM [facility] Blood Venous blood specimen / Unknown Venipuncture / Unknown 08/27/2024 7:07 AM EST 08/27/2024 7:07 AM EST Lamonte Nettles MD LAB BLOOD ORDERABLES Final Res ult [facility] [address] [place] [address], [place] [phone] * (ABNORMAL) Basic metabolic panel (08/27/2024 7:07 AM EST) Only the most recent of3 resultswithin the time period is included. Pathologist [facility] Sodium 139 133 - 145 mmol/L LAB CHEMISTRY METHOD 08/27/2024 7:49 AM [facility] Potassium 4.2 3.5 - 5.5 mmol/L LAB CHEMISTRY METHOD 08/27/2024 7:49 AM [facility] Chloride 106 96 - 110 mmol/L LAB CHEMISTRY METHOD 08/27/2024 7:49 AM [facility] CO2 28 21 - 32 mmol/L LAB CHEMISTRY METHOD 08/27/2024 7:49 AM [facility] Anion Gap 5 3 - 11 LAB CHEMISTRY METHOD 08/27/2024 7:49 AM [facility] Glucose 83 70 - 100 mg/dL LAB CHEMISTRY METHOD 08/27/2024 7:49 AM [facility] BUN 18 5 - 25 mg/dL LAB CHEMISTRY METHOD 08/27/2024 7:49 AM [facility] Creatinine 1.25 0.70 - 1.30 mg/dL LAB CHEMISTRY METHOD 08/27/2024 7:49 AM [facility] eGFR 60 >=60 mL/min/1. 73m2 LAB CHEMISTRY METHOD 08/27/2024 7:49 AM [facility] Comment:Calculation based on the??Chronic Kidney Disease Epidemiology Collaboration (CKD-EPI) equation refit??without adjustment for race. BUN/Creatinine Ratio 14.4 LAB CHEMISTRY METHOD 08/27/2024 7:49 AM [facility] Calcium 8.4(L) 8.5 - 10.5 mg/dL LAB CHEMISTRY METHOD 08/27/2024 7:49 AM [facility] Blood Venous blood specimen / Unknown Venipuncture / Unknown 08/27/2024 7:07 AM EST 08/27/2024 7:07 AM EST us Lamonte Nettles MD LAB BLOOD ORDERABLES Final Res ult [facility] [address] [place] [address], * (ABNORMAL) CBC auto differential (08/27/2024 6:37 AM EST) Only the most recent of4 resultswithin the time period is included. WBC 5.5 4.8 - 10.8 K/mcL LAB HEMETOLOGY METHOD 08/27/2024 7:58 AM [facility] RBC 4.00(L) 4.50 - 5.50 M/mcL LAB HEMETOLOGY METHOD 08/27/2024 7:58 AM [facility] Hemoglobin 13.4(L) 13.5 - 17.5 g/dL LAB HEMETOLOGY METHOD 08/27/2024 7:58 AM [facility] Hematocrit 40.1(L) 42.0 - 54.0 % LAB HEMETOLOGY METHOD 08/27/2024 7:58 AM [facility] MCV 99.3(H) 79.0 - 98.0 FL LAB HEMETOLOGY METHOD 08/27/2024 7:58 AM [facility] MCH 33.2(H) 27.0 - 32.0 pcg LAB HEMETOLOGY METHOD 08/27/2024 7:58 AM [facility] MCHC 33.4 32.0 - 37.0 g/dL LAB HEMETOLOGY METHOD 08/27/2024 7:58 AM [facility] RDW 12.0 11.0 - 15.0 % LAB HEMETOLOGY METHOD 08/27/2024 7:58 AM [facility] Platelets 187 130 - 400 K/mcL LAB HEMETOLOGY METHOD 08/27/2024 7:58 AM [facility] MPV 10.4 7.0 - 11.0 FL LAB HEMETOLOGY METHOD 08/27/2024 7:58 AM [facility] NRBC 0.0 <1.0 % LAB HEMETOLOGY METHOD 08/27/2024 7:58 AM [facility] NRBC Absolute 0.00 <0.10 K/mcL LAB HEMETOLOGY METHOD 08/27/2024 7:58 AM [facility] Neutrophils Relative 48.7 % LAB HEMETOLOGY METHOD 08/27/2024 7:58 AM [facility] Lymphocytes Relative 31.5 % LAB HEMETOLOGY METHOD 08/27/2024 7:58 AM [facility] Monocytes Relative 11.8 % LAB HEMETOLOGY METHOD 08/27/2024 7:58 AM EST [facility] Eosinophils Relative 7.1 % LAB HEMETOLOGY METHOD 08/27/2024 7:58 AM [facility] Basophils Relative 0.7 % LAB HEMETOLOGY METHOD 08/27/2024 7:58 AM [facility] Immature Granulocytes Relative 0.2 % LAB HEMETOLOGY METHOD 08/27/2024 7:58 AM EST [facility] Neutrophils Absolute 2.68 1.50 - 7.00 K/mcL LAB HEMETOLOGY METHOD 08/27/2024 7:58 AM [facility] Lymphocytes Absolute 1.73 1.00 - 5.00 K/mcL LAB HEMETOLOGY METHOD 08/27/2024 7:58 AM [facility] Monocytes Absolute 0.65 0.20 - 1.00 K/mcL LAB HEMETOLOGY METHOD 08/27/2024 7:58 AM EST [facility] Eosinophils Absolute 0.39 0.00 - 0.50 K/mcL LAB HEMETOLOGY METHOD 08/27/2024 7:58 AM [facility] Basophils Absolute 0.04 0.00 - 0.20 K/mcL LAB HEMETOLOGY METHOD 08/27/2024 7:58 AM [facility] Immature Granulocytes Absolute 0.01 0.00 - 0.03 K/mcL LAB HEMETOLOGY METHOD 08/27/2024 7:58 AM EST [facility] Blood Venous blood specimen / Unknown 08/27/2024 6:37 AM EST 08/27/2024 7:08 AM EST us Lamonte Nettles MD LAB BLOOD ORDERABLES Final Res ult [facility] [address] [place] [address], * ECG 12 lead (08/26/2024 7:22 PM EST) Only the most recent of3 resultswithin the time period is included. Ventricular Rate ECG 70 BPM GEMUSE Atrial Rate 70 BPM GEMUSE P-R Interval 294 ms GEMUSE QRS Duration 100 ms GEMUSE Q-T Interval 402 ms GEMUSE QTc 434 ms GEMUSE P Wave Westhoff 41 degrees GEMUSE R Westhoff -41 degrees GEMUSE T Westhoff 15 degrees GEMUSE ECG Interpretation Sinus rhythm with 1st degree A-V block Left axis deviation Cannot rule out Inferior infarct , age undetermined When compared with ECG of 20-AUG-2024 20:41, WA interval has increased Vent. rate has decreased BY ??35 BPM Confirmed by LIAN HORVATH ([id number]) on 08/26/2024 8:35:53 PM GEMUSE 08/26/2024 7:22 PM EST 08/26/2024 8:35 PM EST Papi To MD ECG ORDERABLES Final Result GEMUSE * CT Abdomen Pelvis w Contrast (08/26/2024 6:51 PM EST) Anatomical Region Laterality Modality Body Computed Tomogra phy 08/26/2024 7:22 PM EST Impressions 08/26/2024 7:22 PM EST 1. No acute process. 2. Pancreatic ductal dilatation. Further assessment with ERCP is recommended. This document has been electronically signed by: Petrona Soria MD on 08/26/2024 19:22:18 Narrative 08/26/2024 7:22 PM EST INDICATION: Diverticulitis, complication suspected CT abdomen and pelvis with contrast Comparison: None Findings: No consolidation or effusion. Gallbladder is within normal limits. There is severe distention of the pancreatic duct within the pancreatic neck measuring 11 mm diameter. Scarring within the right superior pole and interpolar kidney. Diffuse left renal scarring. Solid organs are otherwise within normal limits. No bowel obstruction, pneumoperitoneum, or pneumatosis. Pelvic contents unremarkable. Normal appendix. No acute fracture. Multilevel disc space narrowing and endplate osteophyte formation, as well as facet hypertrophy. Procedure Note Petrona Soria MD - 08/26/2024 INDICATION: Diverticulitis, complication suspected CT abdomen and pelvis with contrast Comparison: None Findings: No consolidation or effusion. Gallbladder is within normal limits. There is severe distention of the pancreatic duct within the pancreatic neck measuring 11 mm diameter. Scarring within the right superior pole and interpolar kidney. Diffuse left renal scarring. Solid organs are otherwise within normal limits. No bowel obstruction, pneumoperitoneum, or pneumatosis. Pelvic contents unremarkable. Normal appendix. No acute fracture. Multilevel disc space narrowing and endplateosteophyte formation, as well as facet hypertrophy. IMPRESSION: 1. No acute process. 2. Pancreatic ductal dilatation. Further assessment with ERCP is recommended. This document has been electronically signed by: Petrona Soria MD on 08/26/2024 19:22:[address] PROCEDURES Final Resu lt * XR Chest 2 Views (08/26/2024 6:43 PM EST) Only the most recent of2 resultswithin the time period is included. Anatomical Region Laterality Modality Body Radiographic Danna ging 08/27/2024 8:01 AM EST Impressions 08/27/2024 8:02 AM EST No acute findings. -------- FINAL REPORT -------- Dictated By: Hunter Hameed Dictated Date: 08/27/2024 08:01 ET Assigned Physician: Hunter Hameed Reviewed and Electronically Signed By: Hunter Hameed Signed Date: 08/27/2024 08:02 ET Workstation ID: [id number] Transcribed By: Self Edit Transcribed Date: 08/27/2024 08:01 ET Narrative 08/27/2024 8:02 AM EST PROCEDURE: PA and lateral radiographs of the chest. HISTORY: dyspnea. COMPARISON: 08/20/2024. FINDINGS: Lungs and pleural spaces are clear. ??Normal pulmonary vasculature. ??Cardiomediastinal contours are normal. ??ACDF hardware. ??Moderate degenerative changes of the spine. Procedure Note Hunter Hameed MD - 08/27/2024 PROCEDURE: PA and lateral radiographs of the chest. HISTORY: dyspnea. COMPARISON: 08/20/2024. FINDINGS: Lungs and pleural spaces are clear. Normal pulmonary vasculature.Cardiomediastinal contours are normal. ACDF hardware. Moderatedegenerative changes of the spine. IMPRESSION: No acute findings. -------- FINAL REPORT -------- Dictated By: Hunter Hameed Dictated Date: 08/27/2024 08:01 ET Assigned Physician: Hunter Hameed Reviewed and Electronically Signed By: Hunter Hameed Signed Date: 08/27/2024 08:02 ET Workstation ID: [id number] Transcribed By: Self Edit Transcribed Date: 08/27/2024 08:01 ET Papi To MD IM XR PROCEDURES Final Result * (ABNORMAL) Gastrointestinal pathogens molecular study (08/26/2024 6:35 PM EST) Campylobacter Detection by PCR Not Detected Not Detected LAB MICROBIOLOGY METHOD 5 8:23 PM [facility] Plesiomonas shigelloides Detection by PCR Not Detected Not Detected LAB MICROBIOLOGY METHOD 5 8:23 PM [facility] Salmonella Detection by PCR Not Detected Not Detected LAB MICROBIOLOGY METHOD 5 8:23 PM [facility] Vibrio Detection by PCR Not Detected Not Detected LAB MICROBIOLOGY METHOD 5 8:23 PM [facility] Vibrio cholerae Detection by PCR Not Detected Not Detected LAB MICROBIOLOGY METHOD 5 8:23 PM [facility] Yersinia enterocolitica Detection by PCR Not Detected Not Detected LAB MICROBIOLOGY METHOD 5 8:23 PM [facility] Enteroaggregative E coli EAEC Detection by PCR Not Detected Not Detected LAB MICROBIOLOGY METHOD 5 8:23 PM [facility] Enteropathogenic E coli EPEC Detection Not Detected Not Detected LAB MICROBIOLOGY METHOD 5 8:23 PM [facility] Enterotoxigenic E coli ETEC LTST Detection Not Detected Not Detected LAB MICROBIOLOGY METHOD 5 8:23 PM [facility] Shiga-like toxin producing E coli STEC STX1 STX2 Det Not Detected Not Detected LAB MICROBIOLOGY METHOD 5 8:23 PM [facility] Shigella Enteroinvasive E coli EIEC Detection Not Detected Not Detected LAB MICROBIOLOGY METHOD 5 8:23 PM [facility] Cryptosporidium Detection by PCR Not Detected Not Detected LAB MICROBIOLOGY METHOD 5 8:23 PM [facility] Cyclospora cayetanensis Detection by PCR Not Detected Not Detected LAB MICROBIOLOGY METHOD 5 8:23 PM [facility] Entamoeba histolytica Detection by PCR Not Detected Not Detected LAB MICROBIOLOGY METHOD 5 8:23 PM [facility] Giardia lamblia Detection by PCR Not Detected Not Detected LAB MICROBIOLOGY METHOD 5 8:23 PM [facility] Adenovirus F 40 41 Detection by PCR Not Detected Not Detected LAB MICROBIOLOGY METHOD 5 8:23 PM [facility] Astrovirus Detection by PCR Not Detected Not Detected LAB MICROBIOLOGY METHOD 5 8:23 PM [facility] Norovirus GI GII Detection by PCR Detected(A ) Not Detected LAB MICROBIOLOGY METHOD 5 8:23 PM [facility] Sapovirus Detection by PCR Not Detected Not Detected LAB MICROBIOLOGY METHOD 5 8:23 PM [facility] Rotavirus A Detection by PCR Not Detected Not Detected LAB MICROBIOLOGY METHOD 5 8:23 PM [facility] Stool Rectum structure / Unknown Non-blood Collection / Unknown 08/26/2024 6:35 PM EST 08/26/2024 6:57 PM EST Narrative [facility] - 08/26/2024 8:23 PM EST PCR testing is much more sensitive than traditional techniques and allows for the detection of low numbers of stool pathogens. The clinical correlation of PCR results with the need for treatment and clinical outcomes has not been established. Therefore the results of PCR testing for stool pathogens must be taken into clinical context when making treatment decisions. This is a diagnostic test only, repeat testing for cure is not advised. You may consider infectious disease consult for additional guidance. ??Testing Performed by [facility] PCR [facility] LAB MICROBIOLOGY - GENERAL O RDERABLES Final Result Performing Organization Address [facility]/ZIP Co de Phone Number [facility] [address] [place] [address], [place] [phone] * Clostridium difficile toxin (08/26/2024 6:35 PM EST) [facility] Clostridium difficile GDH Antigen Negative Negative 08/26/2024 7:44 PM EST [facility] C difficile Toxins A+B, EIA Negative Negative 08/26/2024 7:44 PM EST [facility] Comment:NEGATIVE FOR TOXIN P RODUCING CLOSTRIDIOIDES DIFFICILE, NO ADDITIONAL TESTING IS NECESSARY. Stool Rectum structure / Unknown Non-blood Collection / Unknown 08/26/2024 6:35 PM EST 08/26/2024 6:56 PM EST [facility] LAB MICROBIOLOGY - GENERAL O RDERABLES Final Result Performing Organization Address City/[facility]/ZIP Co de Phone Number [facility] [address] [place] [address], [place] [phone] * Hepatic Function Panel (08/26/2024 3:22 PM EST) Pathologist [facility] Total Protein 6.9 6.0 - 8.0 g/dL LAB CHEMISTRY METHOD 08/26/2024 7:09 PM EST [facility] Albumin 4.0 3.2 - 5.0 g/dL LAB CHEMISTRY METHOD 08/26/2024 7:09 PM EST [facility] Total Bilirubin 0.7 0.0 - 1.4 mg/dL LAB CHEMISTRY METHOD 08/26/2024 7:09 PM [facility] Bilirubin, Direct 0.2 0.0 - 0.3 mg/dL LAB CHEMISTRY METHOD 08/26/2024 7:09 PM [facility] Bilirubin, Indirect 0.5 0.0 - 1.1 mg/dL LAB CHEMISTRY METHOD 08/26/2024 7:09 PM [facility] ALT (SGPT) 25 10 - 60 unit/L LAB CHEMISTRY METHOD 08/26/2024 7:09 PM [facility] AST (SGOT) 19 10 - 42 unit/L LAB CHEMISTRY METHOD 08/26/2024 7:09 PM [facility] Alkaline Phosphatase 87 42 - 121 unit/L LAB CHEMISTRY METHOD 08/26/2024 7:09 PM [facility] Blood Venous blood specimen / Unknown Venipuncture / Unknown 08/26/2024 3:22 PM EST 08/26/2024 3:44 PM EST us Davon MEJIA LAB BLOOD ORDERABLES Final R esult [facility] [address] [place] [address], [place] [phone] * Culture blood (08/21/2024 7:04 AM EST) Only the most recent of2 resultswithin the time period is included. Culture, Blood No growth at 5 days 08/26/2024 8:01 AM [facility] Blood Venous blood specimen / Unknown Venipuncture / Unknown 08/21/2024 7:04 AM EST 08/21/2024 7:18 AM EST us Lamonte Nettles MD LAB MICROBIOLOGY - GENERAL ORD ERABLES Final Result [facility] [address] [place] [address], * CT Chest w Contrast (08/20/2024 10:03 PM EST) Anatomical Region Laterality Modality Body Computed Tomogra phy 08/20/2024 10:3 8 PM EST Impressions 08/20/2024 10:38 PM EST 1. Mild bronchial thickening of the lung bases could represent reactive airways disease including bronchitis. No lobar consolidation. 2. Linear atelectasis within the dependent left upper lobe and within the right lower lobe. 3. Aneurysm of the proximal ascending thoracic aorta measures 4.3 cm. Recommend close interval follow-up to ensure stability of size. 4. Mild coronary atherosclerosis. This document has been electronically signed by: Cesar Perez DO on 08/20/2024 22:38:01 Narrative 08/20/2024 10:38 PM EST INDICATION: Cough, persistent CT chest with IV contrast. Comparison: None Findings: The thyroid is unremarkable. Atherosclerosis of the thoracic aorta. Aneurysm of the proximal ascending thoracic aorta measures 4.3 cm. Recommend close interval follow-up to ensure stability of size. The heart is normal size. Mild coronary atherosclerosis. Small subcentimeter lymph nodes are scattered throughout the mediastinum. Linear atelectasis within dependent left upper lobe and also within the right lower lobe. Mild bronchial thickening of the lung bases could represent reactive airways disease including bronchitis. No lobar consolidation. Degenerative changes of the thoracic spine. Anterior fixation of the lower cervical spine. Small right renal cysts. Procedure Note Cesar Perez MD - 08/20/2024 INDICATION: Cough, persistent CT chest with IV contrast. Comparison: None Findings: The thyroid is unremarkable. Atherosclerosis of the thoracic aorta. Aneurysm of the proximalascending thoracic aorta measures 4.3 cm. Recommend close interval follow-up to ensure stability of size. The heart is normal size. Mild coronary atherosclerosis. Small subcentimeter lymph nodes are scattered throughout themediastinum. Linear atelectasis within dependent left upper lobe and also within the right lower lobe. Mild bronchial thickening of the lung bases could represent reactive airways disease including bronchitis. No lobar consolidation. Degenerative changes of the thoracic spine. Anterior fixation of thelower cervical spine. Small right renal cysts. IMPRESSION: 1. Mild bronchial thickening of the lung bases could represent reactive airways disease including bronchitis. No lobar consolidation. 2. Linear atelectasis within the dependent left upper lobe and withinthe right lower lobe. 3. Aneurysm of the proximal ascending thoracic aorta measures 4.3 cm. Recommend close interval follow-up to ensure stability of size. 4. Mild coronary atherosclerosis. This document has been electronically signed by: Cesar Perez DO on 08/20/2024 22:38:01 [facility] Enoc Dodd Hernán DO IM CT PROCEDURES Final R esult * (ABNORMAL) [id number], RSV, Influenza A and B qualitative RT-PCR (08/20/2024 8:06 PM EST) Influenza A PCR Not Detected Not Detected LAB MICROBIOLOGY METHOD 08/20/2024 9:07 PM [facility] Influenza B PCR Not Detected Not Detected LAB MICROBIOLOGY METHOD 08/20/2024 9:07 PM [facility] RSV PCR Detected(A) Not Detected LAB MICROBIOLOGY METHOD 08/20/2024 9:07 PM [facility] SARS COV-2 Not Detected Not Detected LAB MICROBIOLOGY METHOD 08/20/2024 9:07 PM [facility] Swab Nasopharyngeal structure / Unknown Non-blood Collection / Unknown 08/20/2024 8:06 PM EST 08/20/2024 8:24 PM EST [facility] - 08/20/2024 9:07 PM EST Disclaimer: ??Testing was performed using the [employer] GeneXpert Xpress SARS-CoV-2 _Flu_RSV PLUS PCR assay. ??The manner in which this information is used to guide patient care is the responsibility of the healthcare provider. ??Results should be correlated with the clinical history, epidemiological data, and other data available to the clinician evaluating the patient. ??Negative results do not preclude infection. ??This test has been authorized by the FDA under an Emergency Use Authorization (EUA). ??This test is only authorized for the duration of time the declaration that circumstances exist justifying the authorization of the emergency use of in vitro diagnostic tests for detection of SARS-CoV-2 virus and/or diagnosis of COVID-19 infection under section 564 (b) (1) of the Act, 21 U.S.C 360bbb-3 (b) (1), unless the authorization is terminated or revoked sooner. ?? Reference Range: Not Detected Fact sheet for Healthcare providers can be found at https://www.fda.gov/media/931872/download. ?? Fact sheet for Healthcare patients can be found at https://www.fda.gov/media/700031/download. Jasmina Jim DO LAB MICROBIOLOGY - GENERA L ORDERABLES Final Result Performing Organization Address [facility]/ZIP Co de Phone Number [facility] [address] [place] [address], [place] [phone] * Troponin I high sensitivity (08/20/2024 3:05 PM EST) Only the most recent of2 resultswithin the time period is included. High Sensitivity Troponin I 8 <=79 ng/L LAB CHEMISTRY METHOD 08/20/2024 5:16 PM EST [facility] Blood Venous blood specimen / Unknown Venipuncture / Unknown 08/20/2024 3:05 PM EST 08/20/2024 3:37 PM EST Narrative [facility] - 08/20/2024 5:16 PM EST High levels of biotin in samples may falsely decrease hsTroponin values. ??Use caution when interpreting hsTroponin results in patients taking biotin who exhibit renal impairment (eGFR <60) or in patients taking more than 20 mg/day of biotin. Jasmina Jim DO LAB BLOOD ORDERABLES Shi l Result Performing Organization Address [facility]/ZIP Co de Phone Number [facility] [address] [place] [address], [place] [phone] * Protime-INR (08/20/2024 12:17 PM EST) Protime 12.2 10.6 - 13.9 sec LAB COAGULATION METHOD 08/20/2024 12:40 PM EST [facility] INR 1.0 LAB COAGULATION METHOD 08/20/2024 12:40 PM EST [facility] Blood Venous blood specimen / Unknown Venipuncture / Unknown 08/20/2024 12:17 PM EST 08/20/2024 12:29 PM EST us Abdirizak Sanchez MD LAB BLOOD ORDERABLES Final Result Performing Organization Address City/State/[facility] Co de Phone Number [facility] [address] [place] [address], from Last 3 Months Additional Health Concerns Infection Onset Date Last Indicated Norovirus 08/26/2024 08/26/2024 Insurance [employer] MEDICARE Advance Directives Documents on File Type Date 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 (hx) 01/23/2022 AD CROWLEY DIRECTIVE Health Care Decision (hx) 01/23/2022 AD CROWLEY DIRECTIVE Health Care Decision (hx) 01/23/2022 AD CROWLEY DIRECTIVE Health Care Decision (hx) 01/23/2022 AD CROWLEY DIRECTIVE Health Care Decision (hx) 01/23/2022 AD CROWLEY DIRECTIVE Health Care Decision (hx) 01/23/2022 AD CROWLEY DIRECTIVE Health Care Decision (hx) 01/23/2022 AD CROWLEY DIRECTIVE Health Care Decision (hx) 01/23/2022 AD CROWLEY DIRECTIVE Health Care Decision (hx) 05/04/2021 AD CROWLEY DIRECTIVE Health Care Decision (hx) 04/19/2021 AD CROWLEY DIRECTIVE Health Care Decision (hx) 04/19/2021 AD CROWLEY DIRECTIVE Health Care Decision (hx) 04/19/2021 AD CROWLEY DIRECTIVE Health Care Decision (hx) 04/19/2021 AD CROWLEY DIRECTIVE Health Care Decision (hx) 04/19/2021 AD CROWLEY DIRECTIVE Health Care Decision (hx) 04/19/2021 AD CROWLEY DIRECTIVE Health Care Decision (hx) 04/19/2021 AD CROWLEY DIRECTIVE Health Care Decision (hx) 04/19/2021 AD CROWLEY DIRECTIVE Health Care Decision (hx) 04/19/2021 AD CROWLEY DIRECTIVE Health Care Decision (hx) 04/19/2021 AD CROWLEY DIRECTIVE Health Care Decision (hx) 04/19/2021 AD CROWLEY DIRECTIVE Health Care Decision (hx) 04/19/2021 AD CROWLEY DIRECTIVE Health Care Decision (hx) 04/19/2021 AD CROWLEY DIRECTIVE Health Care Decision (hx) 04/19/2021 AD CROWLEY DIRECTIVE Health Care Decision (hx) 04/19/2021 AD CROWLEY DIRECTIVE * Full Code - Default (Latest Code Status on File) Date Activated Date Inactivated Comments 08/26/2024 9:40 PM 08/27/2024 2:49 PM This is orde r is used when code status has not been discussed with the patient, or code status is otherwise unknown/unconfirmed To update the patient's code status, place a code status order. Do not modify or discontinue any currently active code status orders. Care Teams Welfare Manager Relationship Specialty Start Date End Date Geovanny Lew MD [address] [place] [address] PCP - General Internal Medicine 06/06/20
== END 2024-10-12 15:17 | disposition home or self-care (01) ==
LOC: HO.HOP 14:39
PROVIDERS: PCP Internal Medicine; Visit Provider Psychiatry & Neurology Psychiatry
DX: F41.0 Panic disorder [episodic paroxysmal anxiety] (principal); F33.9 Major depressive disorder, recurrent, unspecified
CPT/HCPCS: 90833; 99213

== ENCOUNTER → 2024-10-12 14:39 | Outpatient (BNVA) | payer MEDICARE, SELFPAY | PROVIDERS: PCP Internal Medicine; Visit Provider Psychiatry & Neurology Psychiatry | DX: F41.0 Panic disorder [episodic paroxysmal anxiety] (principal); F33.9 Major depressive disorder, recurrent, unspecified; Z71.89 Other specified counseling | CPT/HCPCS: 99212 ==

== ENCOUNTER 2025-01-04 12:47 | Outpatient (AMB) | payer OTHER, SELFPAY ==
--- OUTSIDE RECORDS SUMMARY | 2025-01-04 13:10 | XMS_ITS | Clinical Summary ---
Author Organization [facility] Facility Address [address] [place] [address] Care Team Providers Care Reporting Lead Name Role Phone Geovanny Lew MD Primary Care Provider [phone] Allergies No known active allergies Medications MULTIPLE [...] Due Date Last Done Comments Pneumococcal Vaccine: 50+ Ye ars (2 of 2 - PCV) 05/17/2009 05/17/2008 Influenza Vaccine (Season Ended) 2025 Pneumococcal Vaccine: Peds ( 0 to 5 Years) and At-Risk Patients (6 to 49 Years) Discontinued 05/17/2008 Hepatitis B Vaccine Aged Out No longe r eligible based on patient's age to complete this topic Insurance A[employer]na Medicare A[employer]na Medicare Care Teams Reporting Lead Relationship Specialty Start Date End Date Geovanny Lew MD [address] [place] [address] PCP - General 07/18/20
--- OUTSIDE RECORDS SUMMARY | 2025-01-04 13:10 | XMS_ITS ---
Author Name [facility] Organization Unknown Encounters Encounter Type Encounter Reason Primary Diagnosis Location Date Ambulatory [facility] 05/05/2024 Care Team Organization Name Specialty Phone Email Start Date End Da te [facility] 2024
--- OUTSIDE RECORDS SUMMARY | 2025-01-04 13:11 | XMS_ITS | Data Portability ---
Author Organization [place] - [facility], [facility] - INPATIENT Address [address] [place] [address] Care Team Providers Care Transport Driver Name Role Phone CHALO PÉREZ Primary Care Provider Assessment Encounter Date Assessment Date Assessment LastModified by Organization Details LastModified Time 08/01/2023 08/01/2023 Mr. Rg is a 72 y/o male w/ PSH C5-C7 [place]CDF [place] [address] Mora who presents today for evaluation of severe neck pain for the last 6 weeks. Mr. Rg reports approximately 6 weeks ago without any inciting event or trauma he began to develop right sided neck pain which would radiate out to his right trapezius and diffusely into his right shoulder not progressing down his arm. He reports this pain was severe and limited his ability to sleep, after about 4 weeks he saw resolution of his right sided pain and began to develop similar symtpoms on the left side, again described as intense pain from the side of his neck into his left trap and diffusely throughout his left shoulder. Mr. Rg saw his primary care who wrote him for oxycodone and ordered a cervical MRI however this was denied by his insurance. Today Mr. Rg continues to deal with severe left sided neck pain radiating into his trapezius and his left shoulder, he reports this is tolerable during the day but he has 10/10 pain at night leaving him unable to get restful sleep. This pain has drastically limited his quality of life and both pain and lack of sleep have left him unable to focus on work. He has had 6 weeks of symptoms and used analgesia including narcotics and OTC analgesics to no avail. On exam today he has preserved cervical ROM though left sided rotation and lateral flexion are painful and prolonged flexion exacerbates his left shoulder pain. His upper extremity strength is fully intact, as is sensation and UE DTR. He is exquisitely tender to palpation in his left trapezius despite no notable tightness or trigger points. His xrays show ACDF C5-C7 which appears well healed with good bone fusion, there is significant disc degeneration cranially at C4-C5 but this level is stable on flexion and extension, there is forward translation of C3 on C4 in cervical flexion. I discussed with Davon that his fusion construct appears well healed and that there is significant disc degeneration above that level at C4-C5 as well as some translation at C3-C4. Given his pain levels and presentation today I suspect nerve mediated pain could be involved, his exam is quite inconsistent with myofascial pain and his xrays certainly show changes that could account for nerve compression in the upper cervical spine. He has been unable to sleep or find comfort at night for the last 6 weeks which has weighed on him mentally, he has severe pain and I cannot appreciate any paraspinal muscle tightness or trigger points which could be addressed in PT. I would like for him to go for a cervical MRI to rule out cervical stenosis and nerve root compression cranially to his fusion at C3-C4 and C4-C5, if there is pathology amendable to injection we may be able to get his pain under control and get him into some physical therapy. We will send him a prescription for a muscle relaxant to see if it can aid in his sleep, I explained that narcotics are something we do our best to avoid in these situations. Mr. Rg was in agreement, he was instructed to arrange f/u once he knows the date of his MRI. [email or web address] Not available 08/01/2023 17:18:01 09/06/2023 09/06/2023 Mr. Rg is a 72 y/o male who presents for cervical MRI review, PSH C5-C7 ACDF with Dr. Mora in 2005 He was seen 08/01 w/ complaints of severe and debilitating neck pain radiating from the side of his neck out to his trapezius and shoulder but not down the arm, initially on the right side before spontaneously resolving and beginning with the same symptoms on his left side. His MRI shows severe central and foraminal stenosis at C3-C4 and C4-C5 without cord signal abnormality. ACDF C5-C7 appears intact and canal remains patent. Today I discussed with Mr. Rg his MRI which shows severe stenosis at C3-C4 and C4-C5. We discussed cervical myelopathy and the thoughts surrounding cervical stenosis including the thought that patients are at an increased risk of spinal cord injury. While he does not display any symptoms of cervical myelopathy he does feel he is not able to tolerate living in severe pain and therefore he is willing to pursue operative intervention which could address the cervical stenosis. 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 We discussed that conservative treatments remain an option so as long as he has no neurologically mediated weakness or symptoms of myelopathy. Given his pain is so severe, if he were to pursue pain management modalities he would likely need an injection. Ultimately he cannot fathom living with this pain and wants to seek definitive intervention by way of surgery. We will send him a course of oral steroids in hopes of getting his pain down and allowing him to get some sleep. We discussed risks and side effects, he has tolerated well in the past for gout and would like to proceed. We will arrange f/u in person with Dr. Mora to discuss surgical intervention. Mr. Rg was in agreement with this plan and had all questions and concerns addressed. Not available 09/06/2023 13:01:17 11/19/2023 11/19/2023 73-year-old male with right and left shoulder pain status post cervical fusion almost 20 years ago. We discussed treatment options including injections for pain management versus surgical intervention. Given the degree of cervical stenosis there I discussed with him that surgical intervention would be a good recommendation given also his severity of pain. Pain managed alone might help with some if not all of the shoulder pains however there is a possibility the pain could return. We discussed surgical approaches including anterior versus posterior. 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 Given that surgical site C3-4 and C4-5 I be very concerned about that this we concluded that posterior approach might be the best. I propose a C3-C6 cervical laminectomy and fusion. He understood and would like to proceed [email or web address] Not available 11/19/2023 15:04:50 Plan of Treatment Reminders Order Date Submit Date Provider Last Modified By Organization Details Last Modified Time Details Appointments None recorded. Lab None recorded. Referral None recorded. Procedures None recorded. Surgeries None recorded. Imaging MRI, cervical spine, w/wo contrast - Hx C5-C7 ACDF 2023 024 [email or web address] [facility] ([facility]), [address] [place], [address], 4 12:12:06 Medication Orders prednison e 10 mg tablet 2023 024 [email or web address] [id number], [phone] [place], [address], 4 13:31:39 methocarb eula 750 mg tablet 2023 024 [email or web address] [id number], [phone] [place], [address], 4 09:51:48 Patient TargetsNo targets recorded. Patient Instructions Encounter Date Encounter Id Patient Instructions Last Modified By Organization Details Last Modified Time 11/19/2023 [id number] C3-6 posterior fusion C3-4 C4-5 laminectomy bilateral C4-5 posterior foraminotomies [email or web address] Not available 11/19/2023 15:04:54 Reason for Referral None Reported. Results Created Date Observation Date Name Description Value Unit Range Abnormal Flag Note LastModifiedBy Organization Detail LastModifiedTime 01/03/2001/03/2024 CBC WBC 4.64 K/uL 4.00-1 1.00 Not Available [facility] [address] [facility], [facility], [place], [address], 01/03/2024 18:34:56 01/03/20 24 01/03/2024 CBC RBC 4.17 M/uL 4.20-5 .80 low Not Available [facility] [address] [place], [address], 01/03/2024 18:34:56 01/03/20 24 01/03/2024 CBC hemoglobin 13.9 g/dL 14.0-1 7.0 low Not Available [facility] [address] [place] [address], [place], [address], 01/03/2024 18:34:56 01/03/20 24 01/03/2024 CBC hematocrit 39.9 % 42.0-5 1.0 low Not Available [facility] [address] [place] [address], [place], [address], 01/03/2024 18:34:56 01/03/20 24 01/03/2024 CBC MCH 33.3 pg 27.0-3 4.0 Not Available [facility] [address] [place] [address], [place], [address], 01/03/2024 18:34:56 01/03/20 24 01/03/2024 CBC MCHC 34.8 g/dL 31.0-3 6.0 Not Available [facility] [address] [place] [address], [place], [address], 01/03/2024 18:34:56 01/03/20 24 01/03/2024 CBC MCV 96 fL 80-98 Not Available [facility] [address] [place] [address], [place], [address], 01/03/2024 18:34:56 01/03/20 24 01/03/2024 CBC RDW 12.4 % 11.5-1 4.5 Not Available [facility] [address] [place] [address], [place], [address], 01/03/2024 18:34:56 01/03/20 24 01/03/2024 CBC platelet count 181 K/uL 150-40 0 Not Available [facility] [address] [place] [address], [address], 01/03/2024 18:34:56 01/03/20 24 01/03/2024 CBC mean platelet volume 10.7 fL 9.4-12 .4 Not Available [facility] [address] [facility], [facility], [place], [address], 01/03/2024 18:34:56 01/03/20 24 01/03/2024 CBC RDW-SD 43.3 fL 35.1-4 6.3 Not Available [facility] [address] [facility] [facility], [facility], [place], [address], 01/03/2024 18:34:56 01/03/20 24 01/03/2024 BASIC METAB OLIC PANEL sodium 140 mmol/ L 135-14 5 Not Available [facility] [address] [facility] [facility], [facility], [place], [address], 01/03/2024 19:01:30 01/03/20 24 01/03/2024 BASIC METAB OLIC PANEL potassium 4.2 mmol/ L 3.5-5. 3 Not Available [facility] [address] [facility] [facility], [facility], [place], [address], 01/03/2024 19:01:30 01/03/20 24 01/03/2024 BASIC METAB OLIC PANEL chloride 106 mmol/ L 100-11 2 Not Available [facility] [address] [facility], [facility], [place], [address], 01/03/2024 19:01:30 01/03/20 24 01/03/2024 BASIC METAB OLIC PANEL total CO2 25 mmol/ L 21-30 Not Available [facility] [address] [facility], [facility], [place], [address], 01/03/2024 19:01:30 01/03/20 24 01/03/2024 BASIC METAB OLIC PANEL anion gap 10 mmol/ L 4-20 Not Available [facility] [address] [facility], [facility], [place], [address], 01/03/2024 19:01:30 01/03/20 24 01/03/2024 BASIC METAB OLIC PANEL BUN 22 mg/dL 6-20 high Not Available [facility] [address] [facility], [facility], [place], [address], 01/03/2024 19:01:30 01/03/20 24 01/03/2024 BASIC METAB OLIC PANEL creatinine 1.30 mg/dL 0.00-1 .30 Not Available [facility] [address] [facility], [facility], [place], [address], 01/03/2024 19:01:30 01/03/20 24 01/03/2024 BASIC METAB OLIC PANEL glucose 96 mg/dL 70-105 Not Available [facility] [address] [facility], [facility], [place], [address], 01/03/2024 19:01:30 01/03/20 24 01/03/2024 BASIC METAB OLIC PANEL calcium 9.3 mg/dL 8.4-10 .2 Not Available [facility] [address] [facility], [facility], [place], [address], 01/03/2024 19:01:30 01/03/20 24 01/03/2024 BASIC METAB OLIC PANEL estimated GFR (CKD-epi) 57 mL/mi n/bsa >=60 low Not Available [facility] [address] [facility], [facility], [place], [address], 01/03/2024 19:01:30 01/03/20 24 01/03/2024 TYPE AND SCREE N ABO and Rh B POS Not Available [facility] [address] [facility], [facility], [place], [address], 01/03/2024 19:37:13 01/03/20 24 01/03/2024 TYPE AND SCREE N antibody screen NEG Not Available [facility] [address] [facility], [facility], [place], [address], 01/03/2024 19:37:13 01/03/20 24 01/03/2024 TYPE AND SCREE N ts expiration date 2023 23:59 Not Available [facility] [address], [place], [address], 01/03/2024 19:37:13 01/03/20 24 01/03/2024 MRSA/ SA BY PCR MRSA/SA by PCR Negati ve for Methic illin Resist ant Staphy lococc us aureus . negati ve for methic illin resist ant staphy lococc us aureus . Not Available [facility] [address], [place], [address], 01/03/2024 20:24:29 08/01/19 24 08/01/2023 XR, cervi florian spine No observ ation record ed. [email or web address] In-Office Order Internal Use Only DO Not Attach Compendium DO Not Attach Compendium, Do Not Delete/merge, [id number] 08/01/2023 15:39:57 08/20/19 24 08/19/2023 MRI, cervi florian spine , w/o contr ast No observ ation record ed. [email or web address] [facility] ([facility]) [address], [place], [address], 09/10/2023 14:06:02 01/03/20 24 01/03/2024 xr cervi florian spine compl ete 4 or 5 vw [facility] Pt Name : NATO RG 4 - Date: 1950 Sex: M Locati on : [facility] DXRAD Visit: [id number] Admit Date: 2023 Date of Servic e: 2023 Exam : XR CERVIC AL SPINE COMPLE TE 4 OR 5 VW Status : Final Order MD : Amanda MORA Ord Tel#:( [phone] CC Provid er:, ------ ------ ------ ------ ------ ------ ------ ------ ------ ------ ------ ------ ------ - FINDIN GS: Intact C5-C7 ACDF constr uct in place with compon ents in simila r positi on and config uratio n compar ed to 024. There is solid interb jeff osseou s union at both levels . Verteb ral body height s and alignm ent are simila r to prior with slight amie listhe sis of C2, slight amie listhe sis of C3, and mild retrol isthes is of C4. During flexio n-exte nsion maneuv ers, there is anteri or transl ation of C3 demons trated during flexio n, as previo usly report ed. No verteb ral body transl ation demons trated elsewh ere during flexio n-exte nsion extens ion maneuv ers. As before , there is proxim al juncti on spondy losis with modera te to severe disc height loss at C4-C5. REPORT SIGNED BY: JAYESH BUCKNER 17:04: 08 [email or web address] [facility] [address] [place], [address], 02/27/2024 08:07:38 Result Notes None recorded. Problems Name Problem SNOMED Code Status Onset Date Resolution Date Notes Provider Name and Address Organization Details Recorded Time Spinal stenosis in cervical region 74303889 Active 2023 JACKIE TRAYLOR [address] [place] [address], [phone] , [facility] - [facility] 4 16:08:42 Degeneration of cervical intervertebral disc 39214923 Active 2023 Not Available [employer] 4 15:04:53 Problem Notes None recorded. Procedures Surgical History Date Name Laterality Status Provider Name and Address Organization Details Recorded Time 12/21/19 Orthopaedic Surgery completed Gillian Red [place] [facility] 08/01/2023 16:17:28 03/17/20 06 Other completed Gillian Red MA [facility] 08/01/2023 16:17:20 Orthopaedic Surgery completed Gillian Red [place] [facility] 08/01/2023 16:17:38 Orthopaedic Surgery completed Gillian Red [place] - [facility] 08/01/2023 16:17:46 Imaging Results None recorded. Procedure Notes None recorded. Medical Equipment None Reported. Allergies Allergen ID Allergen Name Allergen Category Reaction Reaction Severity Criticality Documentation Date Start Date Code Code System Note Provider Name and Address Organization Details Recorded Time [id number] Penicilli n Not available Not available Not available Not available 06/14/2022 78385 [facility] 4 16:15:35 [id number] codeine medicatio n Not available Not available Not available 06/14/2022 2670 [facility] 4 16:15:35 Medications Name Sig Start Date Stop Date Status Note LastModified by Organization Details LastModified Time amoxicillin 500 mg capsule TAKE 4 CAPSULES (2 GRAM DOSE) 1 HOUR BEFORE INJECTION 08/01 completed Not Available Not Available Not Available atorvastati n 40 mg tablet TAKE 1 TABLET BY MOUTH EVERY NIGHT active Not Available Not Available No t Available desonide 0.05 % topical cream APPLY TO FACE TWICE A DAY X2 WEEKS TAKE 3 DAY BREAK THEN REPEAT NEEDED active Not Available Not Available No t Available venlafaxine ER 37.5 mg capsule,ext ended release 24 hr TAKE 1 CAPSULE BY MOUTH AT BEDTIME 08/01 completed Not Available Not Available Not Available prednisone 10 mg tablet TAKE 3 TABLETS BY MOUTH TWICE DAILY FOR 6 DAYS 11/18 completed Not Available Not Available Not Available doxycycline hyclate 100 mg capsule TAKE 1 CAPSULE BY MOUTH TWICE A DAY 08/01 completed Not Available Not Available Not Available ketoconazol e 2 % shampoo active Not Available Not Available Not Available trazodone 50 mg tablet TAKE 1 TABLET BY MOUTH AT BEDTIME NEEDED FOR INSOMNIA 08/01 completed Not Available Not Available Not Available ofloxacin 0.3 % eye drops INSTILL 1 DROP INTO AFFECTED EYE(S) 4 TIMES A DAY 08/01 completed Not Available Not Available Not Available tizanidine 4 mg tablet 1 TABLET 3 TIMES A DAY NEEDED active Not Available Not Available No t Available prednisone 20 mg tablet TAKE 1 TAB TWICE DAILY FOR 1 DAY, THEN TAKE 1 TAB ONCE DAILY FOR 2 DAYS DIRECTED 08/01 completed Not Available Not Available Not Available clonazepam 0.5 mg tablet TAKE 1 TABLET BY MOUTH TWICE DAILY NEEDED FOR ANXIETY active Not Available Not Available No t Available clonazepam 1 mg tablet TAKE 1/2 TABLET BY MOUTH 2 TIMES DAILY NEEDED FOR ANXIETY X30 DAYS 08/01 completed Not Available Not Available Not Available triamcinolo ne acetonide 0.1 % topical cream APPLY TO AFFECTED AREA TWICE DAILY FOR ECZEMA FOR 2 WEEKS OR LESS NEEDED 08/01 completed Not Available Not Available Not Available bupropion HCl SR 100 mg tablet,12 hr sustained-r elease TAKE 1 TABLET BY MOUTH TWICE DAILY active Not Available Not Available No t Available lorazepam 0.5 mg tablet TAKE 1 TABLET BY MOUTH TWICE DAILY NEEDED FOR ANXIETY active Not Available Not Available No t Available methocarbam ol 750 mg tablet Take 1 tablet 3 times a day by oral route. 2023 active Not Available Not Available Not Avai lable tamsulosin 0.4 mg capsule TAKE 1 CAPSULE BY MOUTH EVERY DAY active Not Available Not Available No t Available allopurinol 300 mg tablet TAKE 1 TABLET BY MOUTH EVERY DAY active Not Available Not Available No t Available metoprolol succinate ER 25 mg tablet,exte nded release 24 hr TAKE 1 TABLET BY MOUTH EVERY DAY active Not Available Not Available No t Available methylpredn isolone 4 mg tablets in a dose pack TAKE 6 TABLETS ON DAY 1 DIRECTED ON PACKAGE AND DECREASE BY 1 TAB EACH DAY FOR A TOTAL OF 6 DAYS 08/01 completed Not Available Not Available Not Available oxycodone 5 mg tablet TAKE 1 TABLET BY MOUTH THREE TIMES A DAY NEEDED FOR PAIN 11/18 completed Not Available Not Available Not Available mirtazapine 7.5 mg tablet TAKE 1 TABLET BY MOUTH AT BEDTIME active Not Available Not Available No t Available GaviLyte-G 236 gram-22.74 gram-6.74 gram-5.86 gram oral solution TAKE 8 OUNCE BY MOUTH DIRECTED FOLLOW INSTRUCTI ONS PROVIDED BY OFFICE 08/01 completed Not Available Not Available Not Available Eliquis 5 mg tablet TAKE 1 TABLET BY MOUTH TWICE A DAY active Not Available Not Available No t Available Prolensa 0.07 % eye drops PLACE 1 DROP INTO SURGICAL EYE(S) EVERY EVENING 08/01 completed Not Available Not Available Not Available Lagevrio 200 mg capsule (EUA) active Not Available Not Available Not Available Vitals Date Recorded Body height Body mass index (BMI) Body weight Provider Name and Address Organization Details Last Updated DateTime 08/01/2023 185.42 cm 30.3 kg/m2 113079.25 g Gillian Red [facility] 08/01/2023 16:15:30 Date Recorded Body height Provider Name an d Address Organization Details Last Updated DateTime 09/06/2023 185.42 cm Kiersten Hastings [facility] 09/06/2023 12:28:20 Date Recorded Body height Body mass index (BMI) Body weight Provider Name and Address Organization Details Last Updated DateTime 11/19/2023 185.42 cm 30.3 kg/m2 592190.25 g Leanne Vanessa [facility] 11/19/2023 13:31:31 Social History Question Answer Notes LastModified by Organ[employer]at [employer] Details LastModified Time Tobacco Smoking Status Former Smoker Gillian Grossenter [facility] 08/01/2023 16:15:47 How Much Tobacco Do You Smoke? No [email or web address] Information not available 08/01/2023 Sex: Unknown Functional Status Question Answer Note LastModified by [employer] Details LastModified Time What is your level of alcohol consumption? Occasional [email or web address] Information not available 08/01/2023 Do you or have you ever used smokeless tobacco? Never used smokeless tobacco [email or web address] Information not available 08/01/2023 Are you currently employed? 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 Never used electronic cigarettes Information not available 08/01/2023 Mental Status None recorded. Family History Relationship Description Onset Age of this Age Resolved Age Notes LastModified by Organization Details LastModified Time Mother Malignant neoplasm of lung [email or web address] Not available 16:16:57 Father Cerebrovascu lar accident [email or web address] Not available 08/01/2023 16:17:03 Medical History Condition Response Blood Clots / Phlebitis N HIV or AIDS N Heart Problems Y High Blood Pressure N Depression or Anxiety N Irregular Heartbeat Y MRSA N Emphysema / Chronic Bronchitis N Any Other Significant Medical Issues Y Reaction to General/Local Anesthesia N Weight Gain / Loss N Hepatitis / Jaundice N Kidney / Bladder Infections N Diabetes N Bleeding Disorder N Hearing Loss N Angina, Heart Failure or Attack N Night Sweats N Seizures / Epilepsy N Osteoarthritis / Rheumatoid arthritis / Other N Cancer N Stroke N Chemical Dependency / Alcoholism N Ulcer / Stomach Bleeding / Indigestion N Visual Loss or Glaucoma N Thyroid Disorder N Psoriasis / Skin Rash N Heart Disease N Pulmonary Embolism N Asthma / Shortness of Breath / Sleep Night Time Babysitter ea (please specify) N Past Encounters Encounter ID Performer Location Encounter Start Date Encounter Closed Date Diagnosis/Indication Diagnosis SNOMED-CT Code Diagnosis ICD10 Code Diagnosis Note [id number] JACKIE TRAYLOR [facility] Office [address] [phone] 08/01/2023 14:31:55 08/01/2023 16:44:57 Neck pain 35184787 M54.2 [id number] JACKIE TRAYLOR [facility] Office [address] [place] [id number] 09/06/2023 12:27:42 09/06/2023 13:16:05 Spinal stenosis in cervical region 02788696 M48.02 [id number] GUERA MORA MD [facility] Office [address] [place] [id number] 11/19/2023 13:26:16 11/19/2023 14:01:42 Degeneration of cervical intervertebral disc 49243870 M50.320 Spinal david nosis in cervical region 26233323 M48.02 Health Concerns Section Related Observation LastModified by Organization Detai ls LastModified Time None Recorded Concern Status LastModified by Organization Details LastModified Time None Recorded Advance Directives Directive None Recorded Payers Insurance Date Sequence Insurance Name Policy Number Policy Spencer Covered Member ID Spencer Member ID Guarantor Name 07/23/2023 1 [employer] [id number] Davon Susan Ashley [id number] Davon Luy 01/06/2024 1 [employer] (MEDICARE REPLACEMENT/ ADVANTAGE - PPO) [id number] Davon Susan Ashley [id number] Davon Luy Notes Date Note Type Note Provider Name and Address Organization Details Recorded Time 08/01/2023 text/html Mr. Rg is a 72 y/o male who presents today for evaluation of neck pain. He has PSH of a C5-C7 ACDF with Dr. Mora in 2005 after which he reports he did quite well. 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 He reports this resolved spontaneously after about 4 weeks. He then began to notice left sided symptoms from his neck into his left trapezius and through his shoulder diffusely. He denies any weakness or pain radiating into his upper extremities. He has no issues with fine motor dexterity in his hands. He has minor balance issues he feels stems from long covid symptoms, he was hospitalized for 6 weeks and nearly . 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 He denies any other specific or relieving factors. He saw his primary care provider who ordered a cervical MRI which was denied by his insurance. He was given some oxycodone which he reports was not very helpful. He has also used tylenol and aleve regularly but reports his pain persists at fairly high levels. JACKIE TRAYLOR [address] [place] [address], [phone], [facility] 08/01/2023 17:18:10 09/06/2023 text/html Mr. Rg is a 72 y/o male w/ PSH C5-C7 [place]CD[place] [address] Mora who presents today for follow up of neck pain after going for a cervical MRI. Severe right sided neck pain radiating to trap and right shoulder which resolved spontaneously after 4 weeks after which he began to develop left sided symptoms, intense pain from left side of neck into trapezius and diffusely throughout the left shoulder. 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 Narcotic and OTC analgesia without relief.No issues with fine motor dexterity but does struggle with balance, something hes attributed to long covid. Today Mr. Rg reports his symptoms have progressed considerably. He reports the last 2 weeks his pain has been severe as it has ever been. Continues to have severe left sided neck pain radiating out to his trapezius and shoulder, few inches down lateral deltoid but does not reach his elbow and he denies any symptoms into his hands. He denies any significant issues with dexterity, also continues to deny any issues with gait or balance. Muscle relaxant mildly helpful. Just taking tylenol and Aleve at this point. This visit was conducted as a real time interactive audio/visual telehealth visit conducted via [employer] The patient was identified by name and date of and consented to this telehealth visit. The patient was at their home in [place] and I was at my [place] office. Participants of the telehealth visit included myself and the patient . The patient was last seen for an office visit on 08/01/2023. This visit was done over the course of 30 minutes including record review. JACKIE TRAYLOR [address] [place] [address], [phone], [facility] 09/06/2023 13:01:36 11/19/2023 text/html Longtime patient of mine. Underwent C5-7 ACDF in 2005 Had episode of severe right shoulder pain is quite debilitating however the pain spontaneously improved but now he has severe left shoulder pain. He denies any difficulty with fine finger movements, no numbness in his upper extremities, no gait imbalance. GUERA MORA MD [address] [place] [address], [phone], [facility] 11/19/2023 17:00:47
--- OUTSIDE RECORDS SUMMARY | 2025-01-04 13:11 | XMS_ITS | Clinical Summary ---
Author Organization [facility] Address [address] [place] [address] Care Team Providers Care Side Panel Padder Name Role Phone Geovanny Lew MD Primary Care Provider [phone] Allergies No known active allergies Medications Medication [...] - 1-dose 75+ series) 09/29/2023 Influenza Vaccine (Season Ended) 2025 Hepatitis B Vaccines Aged Out No long er eligible based on patient's age to complete this topic RSV Ped < 20 months Aged Out No longe r eligible based on patient's age to complete this topic Care Teams Side Panel Padder Relationship Specialty Start Date End Date Geovanny Lew MD [address] [address] PCP - General Internal Medicine 07/17/19
--- NOTE | 2025-01-04 13:36 | MHC.OFFVISPS ---
Intake Intake Visit Reasons: depression Allergies No Known Allergies Allergy (Verified 07/11/22 16:17) HPI- Psychiatric Chief Complaint: depression HPI Narrative: Patient seen psychiatric follow-up his girlfriend has been somewhat improved medically. She is dealing with cancer. Patient recently had significant medical issues of his own there is a consideration of pancreatic intraductal papillary mucinous neoplasm which can become cancerous down the road. A non urgent surgical consult was ordered in repeat MRI. Patient feeling depressed anxious overwhelmed Past Psychiatric History: The patient has a past history of significant recurrent depression that impacted his life for a number of years with associated panic attacks and difficulty functioning he was treated with Effexor Wellbutrin Rexulti clonazepam for panic attacks he also had a great deal of difficulty a year ago or so when he has suffered from COVID and he to be hospitalized and ended up in a rehab setting for a period of time Mental Status Exam Mental Status Exam Narrative: Mental Status Exam Narrative: Appearance: Casually dressed sad looking Behavior: Cooperative appropriate psychomotor: Within normal limits Speech: Normal volume and prosody Thought proccess logical and goal-directed Thought content: Future oriented focused on ca his health and feeling frequently that he is under a dark cloud catastrophic distorted thinking Mood: Depressed anxious Affect: Appropriate to mood full affect SI:denies any active thoughts states at times he would not mind if he was HI:denies VH/AH:none Delusions: None Insight/judgment: Good insight and judgment Memory/cog: Intact Assessment and Plan Assessment & Plan (1) Major depression, recurrent: Status: Acute Code(s): F33.9 - Major depressive disorder, recurrent, unspecified (2) Panic disorder: Status: Acute Code(s): F41.0 - Panic disorder [episodic paroxysmal anxiety] Plan Increase mirtazapine to 30 mg at bedtime to help with depression symptoms increase lorazepam to 0.5 mg up to 3 times a day consider Abilify or Seroquel for augmentation . Strongly urged regular psychotherapy given his catastrophic and negativistic thinking Patient to call 911 or suicide support line or go to the emergency room if feeling unable to maintain safety. Knows how to reach this junior copywriter if needed. Consider Abilify or Seroquel if not feeling better. Discussed seeing therapy Sandra gaona that he used to see. Patient has had a contact this junior copywriter if feeling worse or unsafe. Needs help to manage catastrophic thinking regarding non Urgent catastrophic diagnosis but certainly worrisome Medications: New mirtazapine 30 mg PO BEDTIME 30 tabs 1RF Changed From lorazepam 0.5 mg PO BID PRN 60 tabs 2RF anxiety To lorazepam 0.5 mg PO TID PRN 90 tabs 2RF anxiety Refilled lorazepam 0.5 mg PO BID PRN 45 tabs 2RF anxiety lorazepam 0.5 mg PO BID PRN 60 tabs 2RF anxiety Discontinued mirtazapine Discontinued Reason: Doctor's Order 22.5 mg (1.5 x 15 mg) PO BEDTIME 90 days 135 tabs 1RF Counseling and coordination of Care Details-Self Mgmt counseling: Issues related to catastrophic thinking Medication management counseling: Effectiveness, Side effects and Dosing range Diagnosis and Prognosis Counseling: Adequacy of current interventions Details-Diagnosis/Prognosis counseling: Consider PHP Details: I spent [40] minutes reviewing the record, seeing the patient and documenting in the medical record. Counseling provided to the patient/caregiver as outlined below. Addressed patient/caregiver concerns regarding current medication regime including effective adherence. Addressed patient/caregiver concerns regarding diagnosis and prognosis including accuracy of diagnosis, prognosis over time, impact of diagnosis. Addressed patient/caregiver concerns regarding impact of recent stressors. 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 Had disruptive divorce many years ago that was quite difficult for him. 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
== END 2025-01-04 13:36 | disposition home or self-care (01) ==
LOC: HO.HOP 12:47
PROVIDERS: PCP Internal Medicine; Visit Provider Psychiatry & Neurology Psychiatry
DX: F33.9 Major depressive disorder, recurrent, unspecified (principal); F41.0 Panic disorder [episodic paroxysmal anxiety]
CPT/HCPCS: 90833; 99213

== ENCOUNTER 2025-02-08 14:30 | Outpatient (AMB) | payer OTHER, SELFPAY ==
--- OUTSIDE RECORDS SUMMARY | 2025-02-03 23:59 | XMS_ITS | Continuity of Care Document ---
Author Organization [facility] Address [address] [place] [address]- Care Team Providers Care Printed Circuit Boards Laminator Name Role Phone Louann BARR, Geovanny Alan Primary Care Physician U nicole [place] [facility]/04[place]25 - 02/03/25 [facility] [address] [place] [address]- Encounter Type: Triage Allergies, Adverse Reactions, Alerts No Known Allergies Medications acetaminophen 650 mg oral tablet, extended release 2 tablet = 1,300 mg, By Mouth, Every 8 hours, 0 Refills, Maintenance, 02/17/21 7:16:00 AM EDT, Partial fill upon patient request if the prescription is for a schedule II opioid drug. Start Date: 02/17/21 Status: Ordered Repeat number: 1 allopurinol 300 mg oral tablet 300 mg, 1, tablet, By Mouth, Daily, Refills 0, Maintenance, 11/27/18 7:37:43 AM EDT Start Date: 11/27/18 Status: Ordered Repeat number: 1 Atenolol By Mouth, Daily, 0 Refills, Maintenance, 12/28/16 6:47:09 PM EDT Start Date: 12/28/16 Status: Ordered Repeat number: 1 atorvastatin 10 mg oral tablet 1 tablet = 10 mg, By Mouth, Daily, # 30 tablet, 0 Refills, Maintenance Start Date: 12/28/16 Status: Ordered Quantity: 30.0 Unit: tablet Repeat number: 1 Eliquis 5 mg oral tablet 0 Refills, Maintenance, 04/28/18 3:34:09 PM EDT Start Date: 04/28/18 Status: Ordered Repeat number: 1 pantoprazole 40 mg oral delayed release tablet 1 tablet = 40 mg, By Mouth, Daily, # 90 tablet, 2 Refills, Maintenance, 12/27/24 3:33:00 PM EDT, EC Tablet, 186, cm, 12/24/24 8:16:00 EDT, Height, 102.5, kg, 12/24/24 8:16:00 EDT, Dry Weight Start Date: 12/27/24 Status: Ordered Quantity: 90.0 Unit: tablet Repeat number: 3 Problem List Condition Confirmation Course Effective Dates Status Health St atus Informant Lumbar facet arthropathy Confirmed Active Patient Care team information Care Team Personnel Name: Louann BARR, Geovanny Alan Position: [facility] Physician - Primary Care Member Role: PCP Name: Divya BARR, Santiago Position: [facility] Outreach Member Role: Lifetime Consulting Physician Address: [address] [facility] [address] [facility] [place], [place] [address] Telecom: Care Team Related Persons Name: SANTIAGO ALAN Name: ANTONI WINTERS Name: KALIA PALOMINO Name: SHO PALOMINO Insurance Providers Guarantor name: PEPE ARCENIO Health Plan Information #: 1 Payer: SAL BYERS Payer Identifier: NA Member Number: [id number] Group Number: [id number] Subscriber Identifier: [id number] Relationship to Subscriber: self Coverage Type: NA Coverage Verification Date: NA Telecom: NA Address:
--- OUTSIDE RECORDS SUMMARY | 2025-02-08 14:32 | XMS_ITS | Clinical Summary ---
Author Organization [facility] Address [address] [place] [address] Care Team Providers Care Systems Integration Advisor Name Role Phone Geovanny Lew MD Primary Care Provider [phone] Allergies No known active allergies Medications MULTIPLE [...] 2 - PCV) 05/17/2009 05/17/2008 Influenza Vaccine (#1) 2025 Pneumococcal Vaccine: Peds ( 0 to 5 Years) and At-Risk Patients (6 to 49 Years) Discontinued 05/17/2008 Hepatitis B Vaccine Aged Out No longe r eligible based on patient's age to complete this topic Insurance Aetna Medicare Aetna Medicare Care Teams Systems Integration Advisor Relationship Specialty Start Date End Date Geovanny Lew MD [address] [place] [address] PCP - General 07/18/20
--- OUTSIDE RECORDS SUMMARY | 2025-02-08 14:32 | XMS_ITS | Clinical Summary ---
Author Organization [facility] Address [address] [place] [address] Care Team Providers Care Aurist Name Role Phone Geovanny Lew MD Primary [...] 1-dose 75+ series) 09/29/2023 Influenza Vaccine (#1) 2025 Hepatitis B Vaccines Aged Out No long er eligible based on patient's age to complete this topic RSV Ped < 20 months Aged Out No longe r eligible based on patient's age to complete this topic Care Teams Aurist Relationship Specialty Start Date End Date Geovanny Lew MD [address] [address] PCP - General Internal Medicine 07/17/19
--- OUTSIDE RECORDS SUMMARY | 2025-02-08 14:32 | XMS_ITS | Encounter Summary ---
Author Organization [facility] Address [address] [place] [address] Care Team Providers Care Playground Supervisor Name Role Phone Geovanny Lew MD Primary Care Provider [phone] Encounter Details Date Type Department Care Team (Late Contact Info) Description 06/29/2024 Lab Requisition [facility] - Main Lab [address] [facility] [address] Geovanny Lew MD [address] [address] Unspecified osteoarthritis, unspecified site Social History Tobacco [...] as of this encounter Plan of Treatment Upcoming Encounters Date Type Department Care Team (Late Contact Info) Description 03/23/2025 1:50 PM EDT Office Visit Gastroenterology - [address] [facility] [address] [place] [phone] Ernestine Mckeon PA [address] [address] 01/10/2026 2:30 PM EDT Office Visit Pulmonol - Branch 175 [facility] [address] [place] [phone] Charlie Rodriguez MD 175 [facility] [address] [place] [address] documented as of this encounter Procedures Procedure [...] LAB CHEMISTRY METHOD 06/29/2024 7:07 PM EST [facility] Blood Venous blood specimen / Unknown 06/29/2024 06/29/2024 6:03 PM EST Narrative [facility] - 06/29/2024 7:07 PM EST The Siemens Advia Centaur Chemiluminescent Immunoassay is used. Results obtained with different assay methods or kits cannot be used interchangeably. Results cannot be interpreted as absolute evidence of the presence or absence of malignant disease. Geovanny Lew MD LAB BLOOD ORDERABLES Final Result [facility] [address] [place] [address], * Hemoglobin A1c (06/29/2024 12:00 AM EST) Hemoglobin A1C 5.2 <6.5 % LAB CHEMISTRY METHOD 06/29/2024 9:24 PM EST [facility] Mean Bld Glu Estim. 103 mg/dL LAB CHEMISTRY METHOD 06/29/2024 9:24 PM EST [facility] Blood Venous blood specimen / Unknown 06/29/2024 06/29/2024 6:03 PM EST Geovanny Lew MD LAB BLOOD ORDERABLES Final Result [facility] [address] [place] [address], documented in this encounter Visit Diagnoses Diagnosis Unspecified osteoarthritis, unspecified site documented in this encounter Additional Health Concerns Infection Onset Date Last Indicated Resolved Time Respiratory Rule-Out 08/20/2024 08/20/2024 025 9:07 PM EST COVID-19 Rule-Out 08/20/2024 08/20/2024 08/20/2024 9:07 PM EST RSV 08/20/2024 08/20/2024 09/13/2024 7:06 PM EDT Gastrointestinal Rule-Out 08/26/2024 08/26/2024 8:23 PM EST C. difficile Rule-Out 08/26/2024 08/26/20242024 7:44 PM EST Norovirus 08/26/2024 08/26/2024 documented as of this encounter Care Teams Playground Supervisor Relationship Specialty Start Date End Date Geovanny Lew MD [address] PCP - General Internal Medicine 06/06/20 documented as of this encounter
--- OUTSIDE RECORDS SUMMARY | 2025-02-08 14:32 | XMS_ITS | Encounter Summary ---
Author Organization [facility] Address [address] [facility] [address] [place] [address] Phone Care Team Providers Care Distribution Lineman Name Role Phone Pcp, Not Required Primary Care Provider Unavaila ble Self-Referred, Patient Unavailable Unavailab Claudio Clark MD, MPH Unavailable [phone] Encounter Details Date Type Department Care Team (Latest Contact Info) Description 01/14/2025 Orders Only [facility] [place] [address] [place] [address], [address] [place] [address] Claudio Viera MD, MPH [address] [facility] 3rd [place] [address] [email or web address] IPMN (intraductal papillary mucinous neoplasm) (Primary Dx) Social History Tobacco Use Types Packs/Day Years Used Date Smoking Tobacco: Never Assessed Education Answer Date Recorded Are you interested in more education? Not on nghia e 11/01/2022 Are you concerned about learning? Not on file 11/01/2022 No 11/01/2022 No 11/01/2022 Digital Access Answer Date Recorded No 12/03/2022 No 12/03/2022 Reliable internet access at home? Not on file 12/03/2022 Device with a working camera? Not on file Sex and Gender Information Value Date Recorded Sex Assigned at Male 02/17/2020 4:18 PM EDT Legal Sex Male 7:43 PM EST Gender Identity Male 02/17/2020 4:18 PM EDT Sexual Orientation Straight 02/17/2020 4: 18 PM EDT documented as of this encounter Plan of Treatment Upcoming Encounters Date Type Department Care Team (Late st Contact Info) Description 02/19/2025 10:30 AM EDT Office Visit [facility] [place] [address] [facility], 10th [place] [address] Claudio Viera MD, MPH [address] [place] [id number] [email or web address] documented as of this encounter Visit Diagnoses Diagnosis IPMN (intraductal papillary mucinous neoplasm)- Primary Neoplasm of unspecified nature of digestive system documented in this encounter Care Teams Distribution Lineman Relationship Specialty Start Date End Date Pcp, Not Required [address] [place] [address] PCP - General 01/12/25 Self-Referred, Patient Referring Physician 01/12/25 Claudio Viera MD, MPH [address] [place] [id number] [email or web address] 01/29/25 documented as of this encounter Additional Source Comments The information contained in this document represents components of the legal health record. It is not the complete legal health record.[facility]
--- NOTE | 2025-02-08 14:49 | A.OFFPSYCH_ITS ---
Intake Intake Visit Reasons: depression Allergies No Known Allergies Allergy (Verified 07/11/22 16:17) Medication List - Last Reconciled 03/17/25 by Jet Adame MD allopurinol 300 mg PO DAILY apixaban (Eliquis) 5 mg PO BID atorvastatin 40 mg PO DAILY bupropion HCl SR 100 mg PO BID lorazepam 0.5 mg PO TID PRN metoprolol succinate ER 25 mg PO DAILY mirtazapine 30 mg PO BEDTIME HPI- Psychiatric Chief Complaint: depression HPI Narrative: Pt seen in f/u has currently limited his relationship with his gf who has been stand off barry regarding moving in together. pt on mirtazapine wellbutrin lorazepam prn . Pt also dealing with possible pancreatic tumor will have consult at [facility] Past Psychiatric History: The patient has a past history of significant recurrent depression that impacted his life for a number of years with associated panic attacks and difficulty functioning he was treated with Effexor Wellbutrin Rexulti clonazepam for panic attacks he also had a great deal of difficulty a year ago or so when he has suffered from COVID and he to be hospitalized and ended up in a rehab setting for a period of time Mental Status Exam Mental Status Exam Narrative: Mental Status Exam Narrative: Appearance: Casually dressed sad looking Behavior: Cooperative appropriate psychomotor: Within normal limits Speech: Normal volume and prosody Thought proccess logical and goal-directed Thought content: Future oriented focused on his health and feeling at his wits end with current relationship Mood: anxious Affect: Appropriate to mood full affect SI:denies HI:denies VH/AH:none Delusions: None Insight/judgment: Good insight and judgment Memory/cog: Intact Assessment and Plan Assessment & Plan (1) Major depressive disorder with single episode, in partial remission: Status: Acute Code(s): F32.4 - Major depressive disorder, single episode, in partial remission Plan continue current plan of care also discussed tx with regular IT seems better with mirtazapine wellbutrin has better perspective Counseling and coordination of Care Pt. Self Management counseling: Cognitive restructuring and Problem solving Details-Self Mgmt counseling: issues related to cancer possibility and issues with gf Medication management counseling: Effectiveness and Side effects Diagnosis and Prognosis Counseling: Accuracy of diagnosis, Prognosis over time, Impact of diagnosis on life functions and Adequacy of current interventions Details: I spent [39] minutes reviewing the record, seeing the patient and documenting in the medical record. Counseling provided to the patient/caregiver as outlined below. Addressed patient/caregiver concerns regarding current medication regime including effective adherence. Addressed patient/caregiver concerns regarding diagnosis and prognosis including accuracy of diagnosis, prognosis over time, impact of diagnosis. Addressed patient/caregiver concerns regarding impact of recent stressors. 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 Had disruptive divorce many years ago that was quite difficult for him. 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
== END 2025-02-08 15:43 | disposition home or self-care (01) ==
LOC: HO.HOP 14:30
PROVIDERS: PCP Internal Medicine; Visit Provider Psychiatry & Neurology Psychiatry
DX: F32.4 Major depressive disorder, single episode, in partial remission (principal)
CPT/HCPCS: 90833; 99213